=== PATIENT | female | born 1975 | race Caucasian/White ===

== ENCOUNTER 2021-10-26 14:33 | Inpatient (IN) | payer OTHER ==
[2021-10-26] MEDS ORDERED: levETIRAcetam 1000 MG/NS 0.75% 1,000 MG/100 ML BAG IV ONE (14:36)
[2021-10-26] MEDS ORDERED: LORazepam 2 MG/ML VIAL IV ONE (14:40)
--- NOTE | 2021-10-26 14:44 | Emergency Department Report ---
HPI - General Time Seen by Provider: 10/26/21 14:36 - HPI HPI: Room 21 The patient is a 46-year-old female presenting with a chief complaint of seizures. 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 Patient has a history of seizures but was taken off of her seizure medications approximately 3 years ago. Daughter states the last seizure before today occurred a few months ago. Patient is currently postictal the family states that the patient was planning on seeing a physician secondary to body aches and sore throat for the past few days ED Past Medical Hx - Past Medical History Hx Seizures: Yes - Surgical History Additional Surgical History: Cervical spine - Family History Family history: no significant - Social History Smoking Status: Never Smoker Substance Use Type: None - Medications Home Medications: Home Medications Medication Instructions Recorded Confirmed Last Taken Type Benzonatate [Tessalon Perles] 100 mg PO Q8HR #30 cap 10/26/21 Unknown Rx Ibuprofen [Motrin 800 MG tab] 800 mg PO Q8HR PRN #20 tablet 10/26/21 Unknown Rx levETIRAcetam [Keppra TAB] 1,000 mg PO BID #90 tab 10/26/21 Unknown Rx ED Review of Systems ROS: Stated complaint: SEIZURE Other details as noted in HPI Comment: Unobtainable due to pts medical conditions Physical Exam - Physical Exam Physical Exam: GENERAL: The patient is well-developed well-nourished female lying on stretcher currently postictal. [] HEENT: Normocephalic. Atraumatic. Extraocular motions are intact. Patient has moist mucous membranes. NECK: Supple. Trachea midline CHEST/LUNGS: Clear to auscultation. There is no respiratory distress noted. HEART/CARDIOVASCULAR: Regular. There is no tachycardia. There is no gallop rub or murmur. ABDOMEN: Abdomen is soft, nontender. Patient has normal bowel sounds. There is no abdominal distention. SKIN: There is no rash. There is no edema. There is no diaphoresis. NEURO: The patient is awake with eyes open but postictal. The patient is not cooperative with neurologic exam at this time. MUSCULOSKELETAL: There is no evidence of acute injury. ED Course - Reevaluation(s) Reevaluation #1: 10/26/21 16:51 Patient A&O x4-states that she was taken off her Keppra 3 years ago. Patient denies having a sore throat but states she has had body aches and occasional dry cough. Patient states she tested negative for COVID ED Medical Decision Making - Lab Data Result diagrams: 10/26/21 15:58 10/26/21 15:58 Laboratory Tests 10/26/21 10/26/21 10/26/21 15:58 15:58 15:58 WBC 3.0 L RBC 4.41 Hgb 13.3 Hct 39.5 MCV 90 MCH 30 MCHC 34 RDW 16.3 H Plt Count 141 [place] % (Auto) Mesmerist PT 13.9 INR 0.97 Sodium 135 L Chloride 103.2 Carbon Dioxide 20 L Anion Gap 16 BUN 9 Creatinine 0.9 Estimated GFR > 60 BUN/Creatinine Ratio 10 Glucose 85 Calcium 8.8 Magnesium 1.70 Total Creatine Kinase 145 H CK-MB (CK-2) 1.1 CK-MB (CK-2) Rel Index 0.7 Troponin T < 0.010 - EKG Data -: EKG Interpreted by Me EKG shows normal: sinus rhythm Rate: normal - EKG Data When compared to previous EKG there are: previous EKG unavailable Interpretation: nonspecific ST-T wave javier (T wave inversion lead aVL, V2) - Radiology Data Radiology results: report reviewed (Chest x-ray), image reviewed (Chest x-ray) interpreted by me: Chest x-ray-no definite focal infiltrates, no pneumothorax [address] [address] XRay Report Signed Patient: LILIYA MONTENEGRO MR#: [id number] : 1975 Acct:[id number] Age/Sex: 46 / F ADM Date: 10/26/21 Loc: ED Attending Dr: Ordering Physician: KAYLEEN MERLOS MD Date of Service: 10/26/21 Procedure(s): XR chest 1V ap Accession Number(s): [id number] cc: KAYLEEN MERLOS MD Fluoro Time In Minutes: CHEST 1 VIEW 10/26/2021 2:47 PM INDICATION / CLINICAL INFORMATION: chest pain. COMPARISON: None available. FINDINGS: SUPPORT DEVICES: None. HEART / MEDIASTINUM: No significant abnormality. LUNGS / PLEURA: No significant pulmonary or pleural abnormality. No pneumothorax. ADDITIONAL FINDINGS: No significant additional findings. IMPRESSION: 1. No acute findings. Signer Name: Sloan Byers MD Signed: 10/26/2021 3:01 PM Workstation Name: [email or web address] Transcribed By: LEONEL Dictated By: KATTY BYERS MD Electronically Authenticated By: KATTY BYERS MD Signed Date/Time: 10/26/211500 DD/ 00 TD/TT: - Differential Diagnosis Seizure Critical care attestation.: If time is entered above; I have spent that time in minutes in the direct care of this critically ill patient, excluding procedure time. ED Disposition Clinical Impression: Seizure, Cough Disposition: HOME / SELF CARE / HOMELESS Is pt being admited?: No Does the pt Need Aspirin: No Condition: Stable Instructions: Seizure, Adult, [id number] Additional Instructions: Return to the emergency department should you develop worsening symptoms, inabil ity to tolerate food or liquids, high fever or any other concerns Prescriptions: levETIRAcetam [Keppra TAB] 1,000 mg PO BID #90 tab Ibuprofen [Motrin 800 MG tab] 800 mg PO Q8HR PRN #20 tablet PRN Reason: Pain , Severe (7-10) Benzonatate [Tessalon Perles] 100 mg PO Q8HR #30 cap Referrals: [facility] [Provider Group] - 3-5 Days ELIEL THRASHER MD [Staff Physician] - 3-5 Days (Dr. Thrasher is a neurologist. Please follow-up with him for further evaluation) Time of Disposition: 16:54
--- NOTE | 2021-10-26 15:06 | XRay Report ---
CHEST 1 VIEW 10/26/2021 2:47 PM INDICATION / CLINICAL INFORMATION: chest pain. COMPARISON: None available. FINDINGS: SUPPORT DEVICES: None. HEART / MEDIASTINUM: No significant abnormality. LUNGS / PLEURA: No significant pulmonary or pleural abnormality. No pneumothorax. ADDITIONAL FINDINGS: No significant additional findings. IMPRESSION: 1. No acute findings. Signer Name: Sloan Byers MD Signed: 10/26/2021 3:01 PM Workstation Name: [email or web address]
[2021-10-26 16:18] LABS: Hematocrit 39.5 % (30.3-42.9); Hemoglobin 13.3 gm/dl (10.1-14.3); Mean Corpuscular HGB Conc 34 % (30-34); Mean Corpuscular Volume 90 fl (79-97); Platelet Count 141 K/mm3 (140-440); Red Blood Count 4.41 M/mm3 (3.65-5.03); Red Cell Distribution Width 16.3 % (13.2-15.2)
[2021-10-26 16:27] LABS: INR 0.97 (0.87-1.13)
[2021-10-26 16:32] LABS: Creatine Kinase MB 1.1 ng/mL (0.0-4.0)
[2021-10-26 16:33] LABS: BUN/Creatinine Ratio 10; Blood Urea Nitrogen 9 mg/dL (7-17); Calcium 8.8 mg/dL (8.4-10.2); Hemolysis Index 66
[2021-10-26 17:06] LABS: Anisocytosis 1+; Basophils % (Manual) 0 % (0.0-1.8); Eosinophils % (Manual) 0 % (0.0-4.3); Platelet Estimate Consistent w Auto; Total Cells Counted 100
[2021-10-26] MEDS ORDERED: FOSPHENYTOIN 1,000 MG.PE in SODIUM CHLORIDE 0.9% 100 ML IV ONE (18:00)
--- NOTE | 2021-10-26 19:42 | Cat Scan Report ---
CT BRAIN: 10/26/2021 INDICATION / CLINICAL INFORMATION: Seizure. COMPARISON: None available. FINDINGS: BRAIN/INTRACRANIAL STRUCTURES: Unenhanced CT images of the brain demonstrate no evidence of acute abn ormality. Ventricles and sulci are normal in size and shape. There is no evidence of acute ischemic injury, hemorrhage, or mass. There are no abnormal extra-axial fluid collections. EXTRACRANIAL STRUCTURES: Unremarkable. IMPRESSION: No acute abnormality All CT scans at this location are performed using dose reduction to ALARA by means of automated expos ure control. Signer Name: Silas Hansen MD Signed: 10/26/2021 7:38 PM Workstation Name: [id number]
--- NOTE | 2021-10-26 20:03 | History and Physical Report ---
History of Present Illness Chief complaint: She is having seizures History of present illness: 46 YO Female with Seizure disorder not currently taking antiepileptic therapy presents to ED for evaluation. Patient is alert and has normal evaluations and provide history. Patient history taken from ED staff as well as the patient's family who present since of the bedside during exam and interview. 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 Patient seen and evaluated in the emergency department. All lab and imaging studies reviewed. Patient was observed having multiple seizures with entire 5-minute timeframe which is consistent with status epilepticus complicated by encephalopathy. Patient admitted to medical floor due to increased risk of worsening symptoms and for medical stabilization. Patient loaded with Keppra in the emergency department. No reports of fever, chills, chest pain, palpitation, productive cough, skin rash, trauma, or known exposure to COVID-19. No prior admission for review. No medication listed at time of admission for reconciliation. Advanced care planning conducted in ED. Past History Past Medical History: seizures, other (See HPI) Past Surgical History: Other (Spine surgery) Social history: no significant social history, other (Unable to obtain) Family history: hypertension Medications and Allergies Allergies Allergy/AdvReac Type Severity Reaction Status Date / Time morphine Allergy Unknown Verified 10/26/21 14:48 Home Medications Medication Instructions Recorded Confirmed Last Taken Type Benzonatate [Tessalon Perles] 100 mg PO Q8HR #30 cap 10/26/21 Unknown Rx Ibuprofen [Motrin 800 MG tab] 800 mg PO Q8HR PRN #20 tablet 10/26/21 Unknown Rx levETIRAcetam [Keppra TAB] 1,000 mg PO BID #90 tab 10/26/21 Unknown Rx Review of Systems ROS unobtainable: due to mental status Exam - Constitutional Vitals: Temp Pulse Resp BP Pulse Ox 99.5 F 99 H 13 136/85 100 10/26/21 14:43 10/26/21 14:43 10/26/21 14:43 10/26/21 14:43 10/26/21 14:43 General appearance: Present: mild distress - EENT Eyes: Present: PERRL, miosis ENT: hearing intact, clear oral mucosa - Neck Neck: Present: supple, normal ROM - Respiratory Respiratory effort: normal Respiratory: bilateral: CTA - Cardiovascular Heart Sounds: Present: S1 & S2. Absent: rub, click - Extremities Extremities: pulses symmetrical, No edema Peripheral Pulses: within normal limits - Abdominal General gastrointestinal: Present: soft, non-tender, non-distended, normal bowel sounds Female genitourinary: Present: normal - Integumentary Integumentary: Present: clear, warm, dry - Musculoskeletal Musculoskeletal: gait normal, strength equal bilaterally - Psychiatric Psychiatric: other (Lethargic) - Neurologic Neurologic: CNII-XII intact, moves all extremities HEART Score - HEART Score Troponin: Troponin T < 0.010 ng/mL (0.00-0.029) 10/26/21 15:58 Results - Labs CBC & Chem 7: 10/26/21 15:58 10/26/21 15:58 Labs: Abnormal lab results 10/26/21 10/26/21 Range/Units 15:58 15:58 WBC 3.0 L (4.5-11.0) K/mm3 RDW 16.3 H (13.2-15.2) % Monocytes % (Manual) 14.0 H (0.0-7.3) % Lymphocytes # (Manual) 0.8 L (1.2-5.4) K/mm3 Sodium 135 L (137-145) mmol/L Carbon Dioxide 20 L (22-30) mmol/L Total Creatine Kinase 145 H (30-135) units/L Assessment and Plan - Patient Problems (1) Status epilepticus Current Visit: Yes Status: Acute Plan to address problem: Keppra loading in the emergency department, Keppra 500 mg p.o. twice daily, neuro check, seizure cards, aspiration precautions, continue medical management. (2) Acute encephalopathy Current Visit: Yes Status: Acute Plan to address problem: CT scan head, neuro check, seizure precautions, treat seizure disorder. (3) DVT prophylaxis Current Visit: Yes Status: Acute Plan to address problem: SCDs bilateral lower extremities while in bed (4) Advance care planning Current Visit: Yes Status: Acute Plan to address problem: Disease education data, care plan discussed, diagnoses discussed, prognosis discussed, patient family knowledge understanding and agreement with care plan, +30 minutes. (5) Preventative health care Current Visit: Yes Status: Acute Plan to address problem: Patient family counseled regarding medication compliance, outpatient follow-up with neurology as well as primary care physician for all age and risk factor appropriate screening test. +30 minutes.
[2021-10-26] MEDS ORDERED: oxyCODONE /ACETAMINOPHEN 5-325MG TAB PO PRN (20:05)
[2021-10-26] MEDS ORDERED: HYDROmorphone 0.5 MG/0.5 ML INJ IV PRN (20:05)
[2021-10-26] MEDS ORDERED: ALBUTEROL 2.5 MG/3 ML NEBU IH PRN (20:05)
[2021-10-26] MEDS: SODIUM CHLORIDE 0.9% 1000 ML 1,000 ML IV SCH (22:35)
[2021-10-26] MEDS: LORazepam 2 MG/ML VIAL IV PRN (22:40)
[2021-10-26] MEDS: levETIRAcetam 500 MG/5 ML ORAL LIQD PO SCH (22:40)
[2021-10-26] MEDS: ACETAMINOPHEN 325 MG TAB PO PRN (22:40)
[2021-10-27] MEDS: SODIUM CHLORIDE 0.9% 1000 ML 1,000 ML IV SCH ×3 (05:32→22:47)
[2021-10-27] MEDS: levETIRAcetam 500 MG/5 ML ORAL LIQD PO SCH (09:06)
[2021-10-27] MEDS: LORazepam 2 MG/ML VIAL IV PRN (10:43)
[2021-10-27] MEDS: levETIRAcetam 500 MG in DEXTROSE 5% IN WATER 100 ML IV SCH ×2 (11:43→23:03)
--- NOTE | 2021-10-27 11:56 | Progress Note ---
Assessment and Plan Assessment and plan: #Status epilepticus #Seizure disorder, uncontrolled #medication non-compliance -Keppra and phenytoin loaded in the emergency department -will continue Keppra 500mg IV BID, phenytoin added -PRN ativan for breakthrough seizures -Neurology consulted, awaiting recommendations -UDS ordered -patient stopped taking Keppra and phenytoin on her own and has had breakthrough seizures which has recently worsened, counseled about importance of taking medications and follow up with Neurology. #Acute metabolic encephalopathy-improved -CT head negative -likely secondary to seizures #Advanced care planning -Disease education data, care plan discussed, diagnoses discussed, prognosis discussed, patient family knowledge understanding and agreement with care plan, +30 minutes. History Interval history: Patient seen at bedside along with daughter. At beginning of interview patient became silent after using the rest room. The nurse and I placed her on the bed and positioned her supinely. She then began to have convulsions that lasted approximately less than 30 seconds with saliva coming out of her mouth. 2mg of ativan x 1 was ordered. She became lucid prior to administration and was not in a post-ictal state. Hospitalist Physical - Physical exam Narrative exam: GENERAL: Thin woman. Lying in the bed in no acute distress. HEENT: Normocephalic. Atraumatic. NECK: Supple. CHEST/LUNGS: CTAB on room air HEART/CARDIOVASCULAR: RRR. No murmur, rubs or gallops appreciated. ABDOMEN: +BS. NT/ND. SKIN: No rashes noted. NEURO: No focal motor deficit. Follows all commands. MUSCULOSKELETAL: No joint effusion EXTREMITIES: No cyanosis, clubbing or edema. PSYCH: Cooperative. - Constitutional Vitals: Temp Pulse Resp BP Pulse Ox 99.4 F 69 17 179/99 99 10/26/21 22:00 10/27/21 04:41 10/27/21 09:16 10/27/21 04:41 10/27/21 10:59 General appearance: Present: mild distress HEART Score - HEART Score Troponin: Troponin T < 0.010 ng/mL (0.00-0.029) 10/26/21 15:58 Results - Labs CBC & Chem 7: 10/26/21 15:58 10/27/21 13:31 Labs: Laboratory Last Values WBC 3.0 K/mm3 (4.5-11.0) L 10/26/21 15:58 RBC 4.41 M/mm3 (3.65-5.03) 10/26/21 15:58 Hgb 13.3 gm/dl (10.1-14.3) 10/26/21 15:58 Hct 39.5 % (30.3-42.9) 10/26/21 15:58 MCV 90 fl (79-97) 10/26/21 15:58 MCH 30 pg (28-32) 10/26/21 15:58 MCHC 34 % (30-34) 10/26/21 15:58 RDW 16.3 % (13.2-15.2) H 10/26/21 15:58 Plt Count 141 K/mm3 (140-440) 10/26/21 15:58 [place] % (Auto) [facility] Practitioner 10/26/21 15:58 Add Manual Diff Complete 10/26/21 15:58 Total Counted 100 10/26/21 15:58 Seg Neuts % (Manual) 59.0 % (40.0-70.0) 10/26/21 15:58 Band Neutrophils % 0 % 10/26/21 15:58 Lymphocytes % (Manual) 27.0 % (13.4-35.0) 10/26/21 15:58 Reactive Lymphs % (Man) 0 % 10/26/21 15:58 Monocytes % (Manual) 14.0 % (0.0-7.3) H 10/26/21 15:58 Eosinophils % (Manual) 0 % (0.0-4.3) 10/26/21 15:58 Basophils % (Manual) 0 % (0.0-1.8) 10/26/21 15:58 Metamyelocytes % 0 % 10/26/21 15:58 Myelocytes % 0 % 10/26/21 15:58 Promyelocytes % 0 % 10/26/21 15:58 Blast Cells % 0 % 10/26/21 15:58 Nucleated RBC % Not Reportable 10/26/21 15:58 Seg Neutrophils # Man 1.8 K/mm3 (1.8-7.7) 10/26/21 15:58 Band Neutrophils # 0.0 K/mm3 10/26/21 15:58 Lymphocytes # (Manual) 0.8 K/mm3 (1.2-5.4) L 10/26/21 15:58 Abs React Lymphs (Man) 0.0 K/mm3 10/26/21 15:58 Monocytes # (Manual) 0.4 K/mm3 (0.0-0.8) 10/26/21 15:58 Eosinophils # (Manual) 0.0 K/mm3 (0.0-0.4) 10/26/21 15:58 Basophils # (Manual) 0.0 K/mm3 (0.0-0.1) 10/26/21 15:58 Metamyelocytes # 0.0 K/mm3 10/26/21 15:58 Myelocytes # 0.0 K/mm3 10/26/21 15:58 Promyelocytes # 0.0 K/mm3 10/26/21 15:58 Blast Cells # 0.0 K/mm3 10/26/21 15:58 WBC Morphology Not Reportable 10/26/21 15:58 Hypersegmented Neuts Not Reportable 10/26/21 15:58 Hyposegmented Neuts Not Reportable 10/26/21 15:58 Hypogranular Neuts Not Reportable 10/26/21 15:58 Smudge Cells Not Reportable 10/26/21 15:58 Toxic Granulation Not Reportable 10/26/21 15:58 Toxic Vacuolation Not Reportable 10/26/21 15:58 Dohle Bodies Not Reportable 10/26/21 15:58 Pelger-Huet Anomaly Not Reportable 10/26/21 15:58 Joseph Rods Not Reportable 10/26/21 15:58 Platelet Estimate Consistent w auto 10/26/21 15:58 Clumped Platelets Not Reportable 10/26/21 15:58 Plt Clumps, EDTA Not Reportable 10/26/21 15:58 Large Platelets Not Reportable 10/26/21 15:58 Giant Platelets Not Reportable 10/26/21 15:58 Platelet Satelliting Not Reportable 10/26/21 15:58 Plt Morphology Comment Not Reportable 10/26/21 15:58 RBC Morphology Not Reportable 10/26/21 15:58 Dimorphic RBCs Not Reportable 10/26/21 15:58 Polychromasia Not Reportable 10/26/21 15:58 Hypochromasia Not Reportable 10/26/21 15:58 Poikilocytosis Not Reportable 10/26/21 15:58 Anisocytosis 1+ 10/26/21 15:58 Microcytosis Not Reportable 10/26/21 15:58 Macrocytosis Not Reportable 10/26/21 15:58 Spherocytes Not Reportable 10/26/21 15:58 Pappenheimer Bodies Not Reportable 10/26/21 15:58 Sickle Cells Not Reportable 10/26/21 15:58 Target Cells Not Reportable 10/26/21 15:58 Tear Drop Cells Not Reportable 10/26/21 15:58 Ovalocytes Not Reportable 10/26/21 15:58 Helmet Cells Not Reportable 10/26/21 15:58 Jansen-Clara Bodies Not Reportable 10/26/21 15:58 Billings Rings Not Reportable 10/26/21 15:58 Alma Rosa Cells Not Reportable 10/26/21 15:58 Bite Cells Not Reportable 10/26/21 15:58 Crenated Cell Not Reportable 10/26/21 15:58 Elliptocytes Not Reportable 10/26/21 15:58 Acanthocytes (Spur) Not Reportable 10/26/21 15:58 Rouleaux Not Reportable 10/26/21 15:58 Hemoglobin C Crystals Not Reportable 10/26/21 15:58 Schistocytes Not Reportable 10/26/21 15:58 Malaria parasites Not Reportable 10/26/21 15:58 Conrado Bodies Not Reportable 10/26/21 15:58 Hem Pathologist Commnt No 10/26/21 15:58 PT 13.9 Sec. (12.2-14.9) 10/26/21 15:58 INR 0.97 (0.87-1.13) 10/26/21 15:58 Sodium 135 mmol/L (137-145) L 10/26/21 15:58 Potassium 4.2 mmol/L (3.6-5.0) 10/26/21 15:58 Chloride 103.2 mmol/L (98-107) 10/26/21 15:58 Carbon Dioxide 20 mmol/L (22-30) L 10/26/21 15:58 Anion Gap 16 mmol/L 10/26/21 15:58 BUN 9 mg/dL (7-17) 10/26/21 15:58 Creatinine 0.9 mg/dL (0.6-1.2) 10/26/21 15:58 Estimated GFR > 60 ml/min 10/26/21 15:58 BUN/Creatinine Ratio 10 % 10/26/21 15:58 Glucose 85 mg/dL (65-100) 10/26/21 15:58 Calcium 8.8 mg/dL (8.4-10.2) 10/26/21 15:58 Magnesium 1.70 mg/dL (1.7-2.3) 10/26/21 15:58 Total Creatine Kinase 145 units/L (30-135) H 10/26/21 15:58 CK-MB (CK-2) 1.1 ng/mL (0.0-4.0) 10/26/21 15:58 CK-MB (CK-2) Rel Index 0.7 (0-4) 10/26/21 15:58 Troponin T < 0.010 ng/mL (0.00-0.029) 10/26/21 15:58 Casey/IV: Voiding Method External Female Catheter Active Medications - Current Medications Current Medications: Generic Name Dose Route Start Last Admin Trade Name Freq PRN Reason Stop Dose Admin Acetaminophen 650 mg 10/26/21 20:05 10/26/21 22:40 Acetaminophen 325 Mg Tab PO 650 mg Q4H PRN Administration Pain MILD(1-3)/Fever >100.5/LEVINE Albuterol 2.5 mg 10/26/21 20:05 Albuterol 2.5 Mg/3 Ml Nebu IH Q4HRT PRN Shortness Of Breath Hydromorphone HCl 0.5 mg 10/26/21 20:05 Hydromorphone 0.5 Mg/0.5 Ml Inj IV Q23H PRN Pain , Severe (7-10) Sodium Chloride 1,000 mls @ 125 mls/hr 10/26/21 20:15 10/27/21 05:32 Nacl 0.9% 1000 Ml IV 125 mls/hr DIRECT SCARLETT Administration Levetiracetam 500 mg/ Dextrose 105 mls @ 400 mls/hr 10/27/21 11:00 10/27/21 11:43 IV 400 mls/hr Q12HR SCARLETT Administration Lorazepam 2 mg 10/26/21 20:26 10/27/21 10:43 Lorazepam 2 Mg/Ml Vial IV 2 mg Q8H PRN Administration Seizures Ondansetron HCl 4 mg 10/26/21 20:05 Ondansetron 4 Mg/2 Ml Inj IV Q8H PRN Nausea And Vomiting Oxycodone/Acetaminophen 1 tab 10/26/21 20:05 Oxycodone /Acetaminophen 5-325mg Tab PO Q16H PRN Pain, Moderate (4-6) Phenytoin 200 mg 10/27/21 14:00 Phenytoin 100 Mg/2 Ml Vial IV Q8HR SCARLETT Sodium Chloride 10 ml 10/26/21 22:00 10/27/21 09:06 Sodium Chloride 0.9% 10 Ml Flush Syringe IV 10 ml BID SCARLETT Administration Sodium Chloride 10 ml 10/26/21 20:05 Sodium Chloride 0.9% 10 Ml Flush Syringe IV PRN PRN LINE FLUSH
--- NOTE | 2021-10-27 13:22 | Electrocardiograph Report ---
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
[2021-10-27] MEDS ORDERED: PHENYTOIN 100 MG/2 ML VIAL IV SCH (14:00)
[2021-10-27] MEDS: SODIUM CHLORIDE 0.9% IV SCH ×2 (14:00→22:49)
[2021-10-27] MEDS: PHENYTOIN IV SCH ×2 (14:00→22:49)
[2021-10-27 14:03] LABS: BUN/Creatinine Ratio 9; Blood Urea Nitrogen 7 mg/dL (7-17); Hemolysis Index 4
[2021-10-27] MEDS ORDERED: LORazepam 2 MG/ML VIAL IM PRN (16:30)
[2021-10-27] MEDS: LORazepam 2 MG/ML VIAL IM PRN ×3 (17:51→23:52)
[2021-10-27 23:53] LABS: Amphetamine Screen,Urine PRESUMPTIVE NEGATIVE; Benzodiazepines Screen,Urine PRESUMPTIVE NEGATIVE; Cannabinoid Screen,Urine PRESUMPTIVE POSITIVE; Cocaine Screen,Urine PRESUMPTIVE NEGATIVE; Methadone Screen,Urine PRESUMPTIVE NEGATIVE; Opiate Screen,Urine PRESUMPTIVE NEGATIVE
[2021-10-28] MEDS: SODIUM CHLORIDE 0.9% IV SCH ×3 (06:35→22:17)
[2021-10-28] MEDS: PHENYTOIN IV SCH ×3 (06:35→22:17)
[2021-10-28 08:35] LABS: Alanine Aminotransferase 7 units/L (7-56); Albumin 3.4 g/dL (3.9-5); Blood Urea Nitrogen 6 mg/dL (7-17); Hemolysis Index 0
[2021-10-28 08:40] LABS: BUN/Creatinine Ratio 9
[2021-10-28] MEDS ORDERED: LORazepam 2 MG/ML VIAL IV PRN (09:54)
[2021-10-28] MEDS: LORazepam 2 MG/ML VIAL IM PRN (09:56)
[2021-10-28] MEDS: SODIUM CHLORIDE 0.9% 1000 ML 1,000 ML IV SCH (10:03)
[2021-10-28] MEDS: levETIRAcetam 750 MG in DEXTROSE 5% IN WATER 100 ML IV SCH ×2 (10:08→23:00)
--- NOTE | 2021-10-28 11:36 | Progress Note ---
Assessment and Plan Assessment and plan: #Status epilepticus #Seizure disorder, uncontrolled #medication non-compliance -Keppra and phenytoin loaded in the emergency department -will continue phenytoin, keppra increased to 750mg BID; will order Keppra level -PRN ativan for breakthrough seizures -Neurology consulted, awaiting recommendations; EEG ordered -UDS positive for marijuana; patient confirmed use -patient stopped taking Keppra and phenytoin on her own and has had breakthrough seizures which has recently worsened, counseled about importance of taking medications and follow up with Neurology. #Acute metabolic encephalopathy-improved -CT head negative -likely secondary to seizures #Mild protein calorie malnutrition -albumin 3.4 -nutrition consult #Marijuana use -UDS positive -patient counseled about cessation due to seizure disorder- +10 minutes #Advanced care planning -Disease education data, care plan discussed, diagnoses discussed, prognosis discussed, patient family knowledge understanding and agreement with care plan, +30 minutes. History Interval history: Patient seen this morning. Per chart review she had 1 seizure last night which was terminated with Ativan x1. Patient was alert and oriented x3. Patient has no discomfort at this time. Currently awaiting Teleneurology evaluation. Hospitalist Physical - Physical exam Narrative exam: GENERAL: Thin woman. Lying in the bed in no acute distress. HEENT: Normocephalic. Atraumatic. NECK: Supple. CHEST/LUNGS: CTAB on room air HEART/CARDIOVASCULAR: RRR. No murmur, rubs or gallops appreciated. ABDOMEN: +BS. NT/ND. SKIN: No rashes noted. NEURO: No focal motor deficit. Follows all commands. MUSCULOSKELETAL: No joint effusion EXTREMITIES: No cyanosis, clubbing or edema. PSYCH: Cooperative. - Constitutional Vitals: Temp Pulse Resp BP Pulse Ox 98.2 F 73 19 89/54 98 10/28/21 05:53 10/28/21 05:53 10/28/21 05:53 10/28/21 05:53 10/28/21 05:53 HEART Score - HEART Score Troponin: Troponin T < 0.010 ng/mL (0.00-0.029) 10/26/21 15:58 Results - Labs CBC & Chem 7: 10/26/21 15:58 10/28/21 07:47 Labs: Laboratory Last Values WBC 3.0 K/mm3 (4.5-11.0) L 10/26/21 15:58 RBC 4.41 M/mm3 (3.65-5.03) 10/26/21 15:58 Hgb 13.3 gm/dl (10.1-14.3) 10/26/21 15:58 Hct 39.5 % (30.3-42.9) 10/26/21 15:58 MCV 90 fl (79-97) 10/26/21 15:58 MCH 30 pg (28-32) 10/26/21 15:58 MCHC 34 % (30-34) 10/26/21 15:58 RDW 16.3 % (13.2-15.2) H 10/26/21 15:58 Plt Count 141 K/mm3 (140-440) 10/26/21 15:58 [place] % (Auto) Gristmill Operator 10/26/21 15:58 Add Manual Diff Complete 10/26/21 15:58 Total Counted 100 10/26/21 15:58 Seg Neuts % (Manual) 59.0 % (40.0-70.0) 10/26/21 15:58 Band Neutrophils % 0 % 10/26/21 15:58 Lymphocytes % (Manual) 27.0 % (13.4-35.0) 10/26/21 15:58 Reactive Lymphs % (Man) 0 % 10/26/21 15:58 Monocytes % (Manual) 14.0 % (0.0-7.3) H 10/26/21 15:58 Eosinophils % (Manual) 0 % (0.0-4.3) 10/26/21 15:58 Basophils % (Manual) 0 % (0.0-1.8) 10/26/21 15:58 Metamyelocytes % 0 % 10/26/21 15:58 Myelocytes % 0 % 10/26/21 15:58 Promyelocytes % 0 % 10/26/21 15:58 Blast Cells % 0 % 10/26/21 15:58 Nucleated RBC % Not Reportable 10/26/21 15:58 Seg Neutrophils # Man 1.8 K/mm3 (1.8-7.7) 10/26/21 15:58 Band Neutrophils # 0.0 K/mm3 10/26/21 15:58 Lymphocytes # (Manual) 0.8 K/mm3 (1.2-5.4) L 10/26/21 15:58 Abs React Lymphs (Man) 0.0 K/mm3 10/26/21 15:58 Monocytes # (Manual) 0.4 K/mm3 (0.0-0.8) 10/26/21 15:58 Eosinophils # (Manual) 0.0 K/mm3 (0.0-0.4) 10/26/21 15:58 Basophils # (Manual) 0.0 K/mm3 (0.0-0.1) 10/26/21 15:58 Metamyelocytes # 0.0 K/mm3 10/26/21 15:58 Myelocytes # 0.0 K/mm3 10/26/21 15:58 Promyelocytes # 0.0 K/mm3 10/26/21 15:58 Blast Cells # 0.0 K/mm3 10/26/21 15:58 WBC Morphology Not Reportable 10/26/21 15:58 Hypersegmented Neuts Not Reportable 10/26/21 15:58 Hyposegmented Neuts Not Reportable 10/26/21 15:58 Hypogranular Neuts Not Reportable 10/26/21 15:58 Smudge Cells Not Reportable 10/26/21 15:58 Toxic Granulation Not Reportable 10/26/21 15:58 Toxic Vacuolation Not Reportable 10/26/21 15:58 Dohle Bodies Not Reportable 10/26/21 15:58 Pelger-Huet Anomaly Not Reportable 10/26/21 15:58 Joseph Rods Not Reportable 10/26/21 15:58 Platelet Estimate Consistent w auto 10/26/21 15:58 Clumped Platelets Not Reportable 10/26/21 15:58 Plt Clumps, EDTA Not Reportable 10/26/21 15:58 Large Platelets Not Reportable 10/26/21 15:58 Giant Platelets Not Reportable 10/26/21 15:58 Platelet Satelliting Not Reportable 10/26/21 15:58 Plt Morphology Comment Not Reportable 10/26/21 15:58 RBC Morphology Not Reportable 10/26/21 15:58 Dimorphic RBCs Not Reportable 10/26/21 15:58 Polychromasia Not Reportable 10/26/21 15:58 Hypochromasia Not Reportable 10/26/21 15:58 Poikilocytosis Not Reportable 10/26/21 15:58 Anisocytosis 1+ 10/26/21 15:58 Microcytosis Not Reportable 10/26/21 15:58 Macrocytosis Not Reportable 10/26/21 15:58 Spherocytes Not Reportable 10/26/21 15:58 Pappenheimer Bodies Not Reportable 10/26/21 15:58 Sickle Cells Not Reportable 10/26/21 15:58 Target Cells Not Reportable 10/26/21 15:58 Tear Drop Cells Not Reportable 10/26/21 15:58 Ovalocytes Not Reportable 10/26/21 15:58 Helmet Cells Not Reportable 10/26/21 15:58 Jansen-[place] Bodies Not Reportable 10/26/21 15:58 [place] Rings Not Reportable 10/26/21 15:58 [place] Cells Not Reportable 10/26/21 15:58 Bite Cells Not Reportable 10/26/21 15:58 Crenated Cell Not Reportable 10/26/21 15:58 Elliptocytes Not Reportable 10/26/21 15:58 Acanthocytes (Spur) Not Reportable 10/26/21 15:58 Rouleaux Not Reportable 10/26/21 15:58 Hemoglobin C Crystals Not Reportable 10/26/21 15:58 Schistocytes Not Reportable 10/26/21 15:58 Malaria parasites Not Reportable 10/26/21 15:58 Conrado Bodies Not Reportable 10/26/21 15:58 Hem Pathologist Commnt No 10/26/21 15:58 PT 13.9 Sec. (12.2-14.9) 10/26/21 15:58 INR 0.97 (0.87-1.13) 10/26/21 15:58 Sodium 141 mmol/L (137-145) 10/28/21 07:47 Potassium 3.8 mmol/L (3.6-5.0) 10/28/21 07:47 Chloride 108.8 mmol/L (98-107) H 10/28/21 07:47 Carbon Dioxide 22 mmol/L (22-30) 10/28/21 07:47 Anion Gap 14 mmol/L 10/28/21 07:47 BUN 6 mg/dL (7-17) L 10/28/21 07:47 Creatinine 0.7 mg/dL (0.6-1.2) 10/28/21 07:47 Estimated GFR > 60 ml/min 10/28/21 07:47 BUN/Creatinine Ratio 9 % 10/28/21 07:47 Glucose 75 mg/dL (65-100) 10/28/21 07:47 Calcium 8.0 mg/dL (8.4-10.2) L 10/28/21 07:47 Magnesium 1.70 mg/dL (1.7-2.3) 10/26/21 15:58 Total Bilirubin 0.20 mg/dL (0.1-1.2) 10/28/21 07:47 AST 21 units/L (5-40) 10/28/21 07:47 ALT 7 units/L (7-56) 10/28/21 07:47 Alkaline Phosphatase 57 units/L (35-129) 10/28/21 07:47 Total Creatine Kinase 145 units/L (30-135) H 10/26/21 15:58 CK-MB (CK-2) 1.1 ng/mL (0.0-4.0) 10/26/21 15:58 CK-MB (CK-2) Rel Index 0.7 (0-4) 10/26/21 15:58 Troponin T < 0.010 ng/mL (0.00-0.029) 10/26/21 15:58 Total Protein 5.4 g/dL (6.3-8.2) L 10/28/21 07:47 Albumin 3.4 g/dL (3.9-5) L 10/28/21 07:47 Albumin/Globulin Ratio 1.7 % 10/28/21 07:47 Urine Opiates Screen Presumptive negative 10/27/21 23:10 Urine Methadone Screen Presumptive negative 10/27/21 23:10 Ur Barbiturates Screen Presumptive negative 10/27/21 23:10 Ur Phencyclidine Scrn Presumptive negative 10/27/21 23:10 Ur Amphetamines Screen Presumptive negative 10/27/21 23:10 U Benzodiazepines Scrn Presumptive negative 10/27/21 23:10 Urine Cocaine Screen Presumptive negative 10/27/21 23:10 U Marijuana (THC) Screen Presumptive positive 10/27/21 23:10 Drugs of Abuse Note Disclamer 10/27/21 23:10 Casey/IV: Voiding Method Bedpan Active Medications - Current Medications Current Medications: Generic Name Dose Route Start Last Admin Trade Name Freq PRN Reason Stop Dose Admin Acetaminophen 650 mg 10/26/21 20:05 10/26/21 22:40 Acetaminophen 325 Mg Tab PO 650 mg Q4H PRN Administration Pain MILD(1-3)/Fever >100.5/LEVINE Albuterol 2.5 mg 10/26/21 20:05 Albuterol 2.5 Mg/3 Ml Nebu IH Q4HRT PRN Shortness Of Breath Hydromorphone HCl 0.5 mg 10/26/21 20:05 Hydromorphone 0.5 Mg/0.5 Ml Inj IV Q23H PRN Pain , Severe (7-10) Sodium Chloride 1,000 mls @ 125 mls/hr 10/26/21 20:15 10/28/21 10:03 Nacl 0.9% 1000 Ml IV 125 mls/hr DIRECT SCARLETT Administration Phenytoin 200 mg/ Sodium 200 mls @ 612 mls/hr 10/27/21 14:00 10/28/21 06:35 Chloride IV 612 mls/hr Q8H SCARLETT Administration Levetiracetam 750 mg/ Dextrose 107.5 mls @ 400 mls/hr 10/28/21 10:00 10/28/21 10:08 IV 400 mls/hr Q12HR SCARLETT Administration Lorazepam 2 mg 10/28/21 09:54 Lorazepam 2 Mg/Ml Vial IV Q6H PRN Seizures Ondansetron HCl 4 mg 10/26/21 20:05 Ondansetron 4 Mg/2 Ml Inj IV Q8H PRN Nausea And Vomiting Oxycodone/Acetaminophen 1 tab 10/28/21 09:00 Oxycodone /Acetaminophen 5-325mg Tab PO Q8H PRN Pain, Moderate (4-6) Sodium Chloride 10 ml 10/26/21 22:00 10/28/21 09:58 Sodium Chloride 0.9% 10 Ml Flush Syringe IV 10 ml BID SCARLETT Administration Sodium Chloride 10 ml 10/26/21 20:05 10/27/21 23:53 Sodium Chloride 0.9% 10 Ml Flush Syringe IV 10 ml PRN PRN Administration LINE FLUSH
--- NOTE | 2021-10-28 18:07 | Consultation ---
History of Present Illness - Reason for Consult Consult date: 10/28/21 - History of Present Illness [facility] Consult Note # Demographics Consult Type: General Neurology Patient Location: Inpatient First Name: nguyễn Last Name: ned Date of : 1975 Age: 46 Gender: Female Facility: [facility] Time of Initial Page ( Time): 10/28/2021, 17:52 Time of Return Call ( Time): 10/28/2021, 17:53 # HPI History: 46yo woman who was admitted for seizure. She had seizure last night, as well as 2 seizures today. She did fall and reportedly hit her head. Associated Symptoms: no confusion no dizziness falls no vision changes no vomiting Quality: no slurred speech weakness # Scores Time of exam and NIHSS ( Time): 10/28/2021, 18:05 Level of Consciousness 1a: [0] = Alert; keenly responsive LOC Questions 1b: [0] = Answers both questions correctly LOC Commands 1c: [0] = Performs both tasks correctly Best Gaze 2: [0] = Normal Visual 3: [0] = No visual loss Facial Palsy 4: [0] = Normal symmetrical movements Motor Arm Left 5a: [0] = No drift Motor Arm Right 5b: [0] = No drift Motor Leg Left 6a: [0] = No drift Motor Leg Right 6b: [0] = No drift Limb Ataxia 7: [0] = Absent Sensory 8: [0] = Normal Best Language 9: [0] = No aphasia Dysarthria 10: [0] = Normal Extinction and Inattention 11: [0] = No abnormality NIHSS Total: 0 # PMH-FH-SH Past Medical History: seizure COVId positive Medications: keppra 750mg bid dilantin 200mg bid # Assessment Impression: Seizure # Plan Imaging: (urgency: routine): MRI Brain with AND without contrast Diagnostic Test: EEG Medication: levetiracetam (Keppra) 1000 mg twice daily contine dilantin at 200mg bid Other: If patient has any neurological deterioration please call me back immediately telemetry monitoring # Demographics First Name: nguyễn Last Name: ned Facility: [facility] Past History Past Medical History: seizures, other (See HPI) Past Surgical History: Other (Spine surgery) Social history: no significant social history, other (Unable to obtain) Family history: hypertension Medications and Allergies Allergies Allergy/AdvReac Type Severity Reaction Status Date / Time morphine Allergy Unknown Verified 10/26/21 14:48 Home Medications Medication Instructions Recorded Confirmed Last Taken Type Benzonatate [Tessalon Perles] 100 mg PO Q8HR #30 cap 10/26/21 Unknown Rx Ibuprofen [Motrin 800 MG tab] 800 mg PO Q8HR PRN #20 tablet 10/26/21 Unknown Rx levETIRAcetam [Keppra TAB] 1,000 mg PO BID #90 tab 10/26/21 Unknown Rx Active Meds: Active Medications Acetaminophen (Acetaminophen 325 Mg Tab) 650 mg PO Q4H PRN PRN Reason: Pain MILD(1-3)/Fever >100.5/LEVINE Last Admin: 10/26/21 22:40 Dose: 650 mg Albuterol (Albuterol 2.5 Mg/3 Ml Nebu) 2.5 mg IH Q4HRT PRN PRN Reason: Shortness Of Breath Hydromorphone HCl (Hydromorphone 0.5 Mg/0.5 Ml Inj) 0.5 mg IV Q23H PRN PRN Reason: Pain , Severe (7-10) Sodium Chloride (Nacl 0.9% 1000 Ml) 1,000 mls @ 125 mls/hr IV DIRECT [facility] Last Admin: 10/28/21 10:03 Dose: 125 mls/hr Phenytoin 200 mg/ Sodium (Chloride) 200 mls @ 612 mls/hr IV Q8H [facility] Last Admin: 10/28/21 14:55 Dose: 612 mls/hr Levetiracetam 750 mg/ Dextrose 107.5 mls @ 400 mls/hr IV Q12HR [facility] Last Admin: 10/28/21 10:08 Dose: 400 mls/hr Lorazepam (Lorazepam 2 Mg/Ml Vial) 2 mg IV Q6H PRN PRN Reason: Seizures Ondansetron HCl (Ondansetron 4 Mg/2 Ml Inj) 4 mg IV Q8H PRN PRN Reason: Nausea And Vomiting Oxycodone/Acetaminophen (Oxycodone /Acetaminophen 5-325mg Tab) 1 tab PO Q8H PRN PRN Reason: Pain, Moderate (4-6) Sodium Chloride (Sodium Chloride 0.9% 10 Ml Flush Syringe) 10 ml IV BID SCARLETT Last Admin: 10/28/21 09:58 Dose: 10 ml Sodium Chloride (Sodium Chloride 0.9% 10 Ml Flush Syringe) 10 ml IV PRN PRN PRN Reason: LINE FLUSH Last Admin: 10/27/21 23:53 Dose: 10 ml Exam - Constitutional Vitals: Temp Pulse Resp BP Pulse Ox 98.2 F 73 19 89/54 99 10/28/21 05:53 10/28/21 05:53 10/28/21 05:53 10/28/21 05:53 10/28/21 12:21 Results - Labs CBC & Chem 7: 10/26/21 15:58 10/28/21 07:47 Labs: Abnormal lab results 10/28/21 10/28/21 Range/Units 07:47 Unknown Chloride 108.8 H (98-107) mmol/L BUN 6 L (7-17) mg/dL Calcium 8.0 L (8.4-10.2) mg/dL Total Protein 5.4 L (6.3-8.2) g/dL Albumin 3.4 L (3.9-5) g/dL Coronavirus (PCR) Positive A (Negative)
--- NOTE | 2021-10-28 20:32 | Cat Scan Report ---
CT head/brain wo con INDICATION: fall. TECHNIQUE: CT head. All CT scans at this location are performed using CT dose reduction for ALARA by means of automated exposure control. COMPARISON: 10/26/21. FINDINGS: Intracranial: Pham-white matter differentiation is maintained. No intracranial hemorrhage. No extra a xial collection. No hydrocephalus. No herniation. Sinuses: Mucosal retention cyst in the left maxillary sinus. Otherwise, paranasal sinuses and mastoid air cells are essentially clear. Orbits: Globes are intact. Calvarium: No acute fracture. IMPRESSION: 1. No acute intracranial abnormality. Signer Name: Mohamud Santoro MD Signed: 10/28/2021 8:28 PM Workstation Name: [id number]
[2021-10-29] MEDS: SODIUM CHLORIDE 0.9% IV SCH ×3 (06:16→22:58)
[2021-10-29] MEDS: PHENYTOIN IV SCH ×3 (06:16→22:58)
--- NOTE | 2021-10-29 09:13 | Progress Note ---
Assessment and Plan Assessment and plan: #Status epilepticus #Seizure disorder, uncontrolled-improving #medication non-compliance -Keppra and phenytoin loaded in the emergency department -will continue phenytoin, keppra increased to 1000mg BID; will order Keppra pending -PRN ativan for breakthrough seizures -Neurology consulted, recommendations: EEG and MRI of the brain with/without contrast ordered -UDS positive for marijuana; patient confirmed use -patient stopped taking Keppra and phenytoin on her own and has had breakthrough seizures which has recently worsened, counseled about importance of taking medications and follow up with Neurology. #Asymptomatic COVID-19 infection -COVID PCR positive -Patient has no symptoms at this time will manage with supportive care -Continue isolation until 11/02 #Acute metabolic encephalopathy-improved -CT head negative -likely secondary to seizures #Mild protein calorie malnutrition -albumin 3.4 -nutrition consult #Marijuana use -UDS positive -patient counseled about cessation due to seizure disorder- +10 minutes #Advanced care planning -Disease education data, care plan discussed, diagnoses discussed, prognosis discussed, patient family knowledge understanding and agreement with care plan, +30 minutes. History Interval history: Patient seen this morning. She is currently stable. We discussed neurology recommendations and pending MRI. She has no complaints at this time. Hospitalist Physical - Physical exam Narrative exam: GENERAL: Thin woman. Lying in the bed in no acute distress. HEENT: Normocephalic. Atraumatic. CHEST/LUNGS: CTAB on room air HEART/CARDIOVASCULAR: RRR. No murmur, rubs or gallops appreciated. ABDOMEN: +BS. NT/ND. SKIN: No rashes noted. NEURO: No focal motor deficit. Follows all commands. MUSCULOSKELETAL: No joint effusion EXTREMITIES: No cyanosis, clubbing or edema. PSYCH: Cooperative. - Constitutional Vitals: Temp Pulse Resp BP Pulse Ox 97.0 F L 76 18 124/80 100 10/29/21 03:00 10/29/21 03:00 10/29/21 03:00 10/29/21 03:00 10/29/21 03:00 General appearance: Present: mild distress HEART Score - HEART Score Troponin: Troponin T < 0.010 ng/mL (0.00-0.029) 10/26/21 15:58 Results - Labs CBC & Chem 7: 10/26/21 15:58 10/28/21 07:47 Labs: Laboratory Last Values WBC 3.0 K/mm3 (4.5-11.0) L 10/26/21 15:58 RBC 4.41 M/mm3 (3.65-5.03) 10/26/21 15:58 Hgb 13.3 gm/dl (10.1-14.3) 10/26/21 15:58 Hct 39.5 % (30.3-42.9) 10/26/21 15:58 MCV 90 fl (79-97) 10/26/21 15:58 MCH 30 pg (28-32) 10/26/21 15:58 MCHC 34 % (30-34) 10/26/21 15:58 RDW 16.3 % (13.2-15.2) H 10/26/21 15:58 Plt Count 141 K/mm3 (140-440) 10/26/21 15:58 [place] % (Auto) Chief Wheelage Clerk 10/26/21 15:58 Add Manual Diff Complete 10/26/21 15:58 Total Counted 100 10/26/21 15:58 Seg Neuts % (Manual) 59.0 % (40.0-70.0) 10/26/21 15:58 Band Neutrophils % 0 % 10/26/21 15:58 Lymphocytes % (Manual) 27.0 % (13.4-35.0) 10/26/21 15:58 Reactive Lymphs % (Man) 0 % 10/26/21 15:58 Monocytes % (Manual) 14.0 % (0.0-7.3) H 10/26/21 15:58 Eosinophils % (Manual) 0 % (0.0-4.3) 10/26/21 15:58 Basophils % (Manual) 0 % (0.0-1.8) 10/26/21 15:58 Metamyelocytes % 0 % 10/26/21 15:58 Myelocytes % 0 % 10/26/21 15:58 Promyelocytes % 0 % 10/26/21 15:58 Blast Cells % 0 % 10/26/21 15:58 Nucleated RBC % Not Reportable 10/26/21 15:58 Seg Neutrophils # Man 1.8 K/mm3 (1.8-7.7) 10/26/21 15:58 Band Neutrophils # 0.0 K/mm3 10/26/21 15:58 Lymphocytes # (Manual) 0.8 K/mm3 (1.2-5.4) L 10/26/21 15:58 Abs React Lymphs (Man) 0.0 K/mm3 10/26/21 15:58 Monocytes # (Manual) 0.4 K/mm3 (0.0-0.8) 10/26/21 15:58 Eosinophils # (Manual) 0.0 K/mm3 (0.0-0.4) 10/26/21 15:58 Basophils # (Manual) 0.0 K/mm3 (0.0-0.1) 10/26/21 15:58 Metamyelocytes # 0.0 K/mm3 10/26/21 15:58 Myelocytes # 0.0 K/mm3 10/26/21 15:58 Promyelocytes # 0.0 K/mm3 10/26/21 15:58 Blast Cells # 0.0 K/mm3 10/26/21 15:58 WBC Morphology Not Reportable 10/26/21 15:58 Hypersegmented Neuts Not Reportable 10/26/21 15:58 Hyposegmented Neuts Not Reportable 10/26/21 15:58 Hypogranular Neuts Not Reportable 10/26/21 15:58 Smudge Cells Not Reportable 10/26/21 15:58 Toxic Granulation Not Reportable 10/26/21 15:58 Toxic Vacuolation Not Reportable 10/26/21 15:58 Dohle Bodies Not Reportable 10/26/21 15:58 Pelger-Huet Anomaly Not Reportable 10/26/21 15:58 Joseph Rods Not Reportable 10/26/21 15:58 Platelet Estimate Consistent w auto 10/26/21 15:58 Clumped Platelets Not Reportable 10/26/21 15:58 Plt Clumps, EDTA Not Reportable 10/26/21 15:58 Large Platelets Not Reportable 10/26/21 15:58 Giant Platelets Not Reportable 10/26/21 15:58 Platelet Satelliting Not Reportable 10/26/21 15:58 Plt Morphology Comment Not Reportable 10/26/21 15:58 RBC Morphology Not Reportable 10/26/21 15:58 Dimorphic RBCs Not Reportable 10/26/21 15:58 Polychromasia Not Reportable 10/26/21 15:58 Hypochromasia Not Reportable 10/26/21 15:58 Poikilocytosis Not Reportable 10/26/21 15:58 Anisocytosis 1+ 10/26/21 15:58 Microcytosis Not Reportable 10/26/21 15:58 Macrocytosis Not Reportable 10/26/21 15:58 Spherocytes Not Reportable 10/26/21 15:58 Pappenheimer Bodies Not Reportable 10/26/21 15:58 Sickle Cells Not Reportable 10/26/21 15:58 Target Cells Not Reportable 10/26/21 15:58 Tear Drop Cells Not Reportable 10/26/21 15:58 Ovalocytes Not Reportable 10/26/21 15:58 Helmet Cells Not Reportable 10/26/21 15:58 [place] Bodies Not Reportable 10/26/21 15:58 Only Rings Not Reportable 10/26/21 15:58 [place] Cells Not Reportable 10/26/21 15:58 Bite Cells Not Reportable 10/26/21 15:58 Crenated Cell Not Reportable 10/26/21 15:58 Elliptocytes Not Reportable 10/26/21 15:58 Acanthocytes (Spur) Not Reportable 10/26/21 15:58 Rouleaux Not Reportable 10/26/21 15:58 Hemoglobin C Crystals Not Reportable 10/26/21 15:58 Schistocytes Not Reportable 10/26/21 15:58 Malaria parasites Not Reportable 10/26/21 15:58 Conrado Bodies Not Reportable 10/26/21 15:58 Hem Pathologist Commnt No 10/26/21 15:58 PT 13.9 Sec. (12.2-14.9) 10/26/21 15:58 INR 0.97 (0.87-1.13) 10/26/21 15:58 Sodium 141 mmol/L (137-145) 10/28/21 07:47 Potassium 3.8 mmol/L (3.6-5.0) 10/28/21 07:47 Chloride 108.8 mmol/L (98-107) H 10/28/21 07:47 Carbon Dioxide 22 mmol/L (22-30) 10/28/21 07:47 Anion Gap 14 mmol/L 10/28/21 07:47 BUN 6 mg/dL (7-17) L 10/28/21 07:47 Creatinine 0.7 mg/dL (0.6-1.2) 10/28/21 07:47 Estimated GFR > 60 ml/min 10/28/21 07:47 BUN/Creatinine Ratio 9 % 10/28/21 07:47 Glucose 75 mg/dL (65-100) 10/28/21 07:47 Calcium 8.0 mg/dL (8.4-10.2) L 10/28/21 07:47 Magnesium 1.70 mg/dL (1.7-2.3) 10/26/21 15:58 Total Bilirubin 0.20 mg/dL (0.1-1.2) 10/28/21 07:47 AST 21 units/L (5-40) 10/28/21 07:47 ALT 7 units/L (7-56) 10/28/21 07:47 Alkaline Phosphatase 57 units/L (35-129) 10/28/21 07:47 Total Creatine Kinase 153 units/L (30-135) H 10/29/21 06:08 CK-MB (CK-2) 1.1 ng/mL (0.0-4.0) 10/26/21 15:58 CK-MB (CK-2) Rel Index 0.7 (0-4) 10/26/21 15:58 Troponin T < 0.010 ng/mL (0.00-0.029) 10/26/21 15:58 Total Protein 5.4 g/dL (6.3-8.2) L 10/28/21 07:47 Albumin 3.4 g/dL (3.9-5) L 10/28/21 07:47 Albumin/Globulin Ratio 1.7 % 10/28/21 07:47 Urine Opiates Screen Presumptive negative 10/27/21 23:10 Urine Methadone Screen Presumptive negative 10/27/21 23:10 Ur Barbiturates Screen Presumptive negative 10/27/21 23:10 Ur Phencyclidine Scrn Presumptive negative 10/27/21 23:10 Ur Amphetamines Screen Presumptive negative 10/27/21 23:10 U Benzodiazepines Scrn Presumptive negative 10/27/21 23:10 Urine Cocaine Screen Presumptive negative 10/27/21 23:10 U Marijuana (THC) Screen Presumptive positive 10/27/21 23:10 Drugs of Abuse Note Disclamer 10/27/21 23:10 Coronavirus (PCR) Positive (Negative) A 10/28/21 Unknown Casey/IV: Voiding Method Bedpan Active Medications - Current Medications Current Medications: Generic Name Dose Route Start Last Admin Trade Name Freq PRN Reason Stop Dose Admin Acetaminophen 650 mg 10/26/21 20:05 10/26/21 22:40 Acetaminophen 325 Mg Tab PO 650 mg Q4H PRN Administration Pain MILD(1-3)/Fever >100.5/LEVINE Albuterol 2.5 mg 10/26/21 20:05 Albuterol 2.5 Mg/3 Ml Nebu IH Q4HRT PRN Shortness Of Breath Hydromorphone HCl 0.5 mg 10/26/21 20:05 Hydromorphone 0.5 Mg/0.5 Ml Inj IV Q23H PRN Pain , Severe (7-10) Sodium Chloride 1,000 mls @ 125 mls/hr 10/26/21 20:15 10/28/21 10:03 Nacl 0.9% 1000 Ml IV 125 mls/hr DIRECT SCARLETT Administration Phenytoin 200 mg/ Sodium 200 mls @ 612 mls/hr 10/27/21 14:00 10/29/21 06:16 Chloride IV 612 mls/hr Q8H SCARLETT Administration Levetiracetam 1,000 mg/ 110 mls @ 400 mls/hr 10/29/21 10:00 Dextrose IV Q12HR SCARLETT Lorazepam 2 mg 10/28/21 09:54 10/29/21 03:10 Lorazepam 2 Mg/Ml Vial IV 2 mg Q6H PRN Administration Seizures Ondansetron HCl 4 mg 10/26/21 20:05 Ondansetron 4 Mg/2 Ml Inj IV Q8H PRN Nausea And Vomiting Oxycodone/Acetaminophen 1 tab 10/28/21 09:00 Oxycodone /Acetaminophen 5-325mg Tab PO Q8H PRN Pain, Moderate (4-6) Sodium Chloride 10 ml 10/26/21 22:00 10/28/21 23:42 Sodium Chloride 0.9% 10 Ml Flush Syringe IV 10 ml BID SCARLETT Administration Sodium Chloride 10 ml 10/26/21 20:05 10/27/21 23:53 Sodium Chloride 0.9% 10 Ml Flush Syringe IV 10 ml PRN PRN Administration LINE FLUSH
[2021-10-29] MEDS: levETIRAcetam 1,000 MG in DEXTROSE 5% IN WATER 100 ML IV SCH ×2 (09:48→22:59)
[2021-10-29] MEDS: SODIUM CHLORIDE 0.9% 1000 ML 1,000 ML IV SCH (17:50)
[2021-10-29] MEDS: levETIRAcetam 750 MG in DEXTROSE 5% IN WATER 100 ML IV SCH (22:59)
[2021-10-29] MEDS: ONDANSETRON 4 MG/2 ML INJ IV PRN (23:58)
[2021-10-30] MEDS: PHENYTOIN IV SCH ×2 (05:06→15:59)
[2021-10-30] MEDS: SODIUM CHLORIDE 0.9% IV SCH ×2 (05:06→15:59)
[2021-10-30] MEDS ORDERED: diphenhydrAMINE 25 MG CAP PO PRN (10:00)
[2021-10-30] MEDS: levETIRAcetam 500 MG TAB PO SCH ×2 (10:20→21:17)
--- NOTE | 2021-10-30 15:00 | Progress Note ---
Assessment and Plan Assessment and plan: #Status epilepticus #Seizure disorder, uncontrolled-improving #medication non-compliance #diplopia -Keppra and phenytoin loaded in the emergency department -continue phenytoin 200mg BID and keppra 100mg BID -PRN ativan for breakthrough seizures -Neurology consulted, recommendations: EEG and MRI of the brain with/without contrast pending -UDS positive for marijuana; patient confirmed use -patient stopped taking Keppra and phenytoin on her own and has had breakthrough seizures which has recently worsened, counseled about importance of taking medications and follow up with Neurology. #Asymptomatic COVID-19 infection -COVID PCR positive -Patient has no symptoms at this time will manage with supportive care -Continue isolation until 11/02 #Acute metabolic encephalopathy-resolved -CT head negative -likely secondary to seizures #Mild protein calorie malnutrition -albumin 3.4 -nutrition consult #Marijuana use -UDS positive -patient counseled about cessation due to seizure disorder- +10 minutes #Falls -patient has fallen twice since admission -CT scan of the head negative x2; MRI brain formal read pending -PT evaluation ordered #Advanced care planning -Disease education data, care plan discussed, diagnoses discussed, prognosis discussed, patient family knowledge understanding and agreement with care plan, +30 minutes. History Interval history: Patient seen several times today. She has been without seizure activity x24 hours. Prior to MRI patient had no complaints and the plan was to discharge after MRI. After MRI was obtained, per nursing when the patient was brought back to the room she fell and hit her head. At that time the patient endorsed double vision. I reexamined the patient at approximately 2:30 PM. She still is experiencing diplopia and states that she has had this issue since the seizure medications were restarted. Discharge held to await MRI results and PT examination. Hospitalist Physical - Physical exam Narrative exam: GENERAL: Thin woman. Lying in the bed in no acute distress. HEENT: Normocephalic. Atraumatic. PERRLA. CHEST/LUNGS: CTAB on room air HEART/CARDIOVASCULAR: RRR. No murmur, rubs or gallops appreciated. ABDOMEN: +BS. NT/ND. SKIN: No rashes noted. NEURO: No focal motor deficit. Follows all commands. MUSCULOSKELETAL: No joint effusion EXTREMITIES: No cyanosis, clubbing or edema. PSYCH: Cooperative. - Constitutional Vitals: Temp Pulse Resp BP Pulse Ox 98.4 F 77 20 113/79 98 10/30/21 05:40 10/30/21 05:40 10/30/21 05:40 10/30/21 05:40 10/30/21 05:40 General appearance: Present: mild distress HEART Score - HEART Score Troponin: Troponin T < 0.010 ng/mL (0.00-0.029) 10/26/21 15:58 Results - Labs CBC & Chem 7: 10/26/21 15:58 10/28/21 07:47 Labs: Laboratory Last Values WBC 3.0 K/mm3 (4.5-11.0) L 10/26/21 15:58 RBC 4.41 M/mm3 (3.65-5.03) 10/26/21 15:58 Hgb 13.3 gm/dl (10.1-14.3) 10/26/21 15:58 Hct 39.5 % (30.3-42.9) 10/26/21 15:58 MCV 90 fl (79-97) 10/26/21 15:58 MCH 30 pg (28-32) 10/26/21 15:58 MCHC 34 % (30-34) 10/26/21 15:58 RDW 16.3 % (13.2-15.2) H 10/26/21 15:58 Plt Count 141 K/mm3 (140-440) 10/26/21 15:58 [place] % (Auto) Digester Operator 10/26/21 15:58 Add Manual Diff Complete 10/26/21 15:58 Total Counted 100 10/26/21 15:58 Seg Neuts % (Manual) 59.0 % (40.0-70.0) 10/26/21 15:58 Band Neutrophils % 0 % 10/26/21 15:58 Lymphocytes % (Manual) 27.0 % (13.4-35.0) 10/26/21 15:58 Reactive Lymphs % (Man) 0 % 10/26/21 15:58 Monocytes % (Manual) 14.0 % (0.0-7.3) H 10/26/21 15:58 Eosinophils % (Manual) 0 % (0.0-4.3) 10/26/21 15:58 Basophils % (Manual) 0 % (0.0-1.8) 10/26/21 15:58 Metamyelocytes % 0 % 10/26/21 15:58 Myelocytes % 0 % 10/26/21 15:58 Promyelocytes % 0 % 10/26/21 15:58 Blast Cells % 0 % 10/26/21 15:58 Nucleated RBC % Not Reportable 10/26/21 15:58 Seg Neutrophils # Man 1.8 K/mm3 (1.8-7.7) 10/26/21 15:58 Band Neutrophils # 0.0 K/mm3 10/26/21 15:58 Lymphocytes # (Manual) 0.8 K/mm3 (1.2-5.4) L 10/26/21 15:58 Abs React Lymphs (Man) 0.0 K/mm3 10/26/21 15:58 Monocytes # (Manual) 0.4 K/mm3 (0.0-0.8) 10/26/21 15:58 Eosinophils # (Manual) 0.0 K/mm3 (0.0-0.4) 10/26/21 15:58 Basophils # (Manual) 0.0 K/mm3 (0.0-0.1) 10/26/21 15:58 Metamyelocytes # 0.0 K/mm3 10/26/21 15:58 Myelocytes # 0.0 K/mm3 10/26/21 15:58 Promyelocytes # 0.0 K/mm3 10/26/21 15:58 Blast Cells # 0.0 K/mm3 10/26/21 15:58 WBC Morphology Not Reportable 10/26/21 15:58 Hypersegmented Neuts Not Reportable 10/26/21 15:58 Hyposegmented Neuts Not Reportable 10/26/21 15:58 Hypogranular Neuts Not Reportable 10/26/21 15:58 Smudge Cells Not Reportable 10/26/21 15:58 Toxic Granulation Not Reportable 10/26/21 15:58 Toxic Vacuolation Not Reportable 10/26/21 15:58 Dohle Bodies Not Reportable 10/26/21 15:58 Pelger-Huet Anomaly Not Reportable 10/26/21 15:58 Joseph Rods Not Reportable 10/26/21 15:58 Platelet Estimate Consistent w auto 10/26/21 15:58 Clumped Platelets Not Reportable 10/26/21 15:58 Plt Clumps, EDTA Not Reportable 10/26/21 15:58 Large Platelets Not Reportable 10/26/21 15:58 Giant Platelets Not Reportable 10/26/21 15:58 Platelet Satelliting Not Reportable 10/26/21 15:58 Plt Morphology Comment Not Reportable 10/26/21 15:58 RBC Morphology Not Reportable 10/26/21 15:58 Dimorphic RBCs Not Reportable 10/26/21 15:58 Polychromasia Not Reportable 10/26/21 15:58 Hypochromasia Not Reportable 10/26/21 15:58 Poikilocytosis Not Reportable 10/26/21 15:58 Anisocytosis 1+ 10/26/21 15:58 Microcytosis Not Reportable 10/26/21 15:58 Macrocytosis Not Reportable 10/26/21 15:58 Spherocytes Not Reportable 10/26/21 15:58 Pappenheimer Bodies Not Reportable 10/26/21 15:58 Sickle Cells Not Reportable 10/26/21 15:58 Target Cells Not Reportable 10/26/21 15:58 Tear Drop Cells Not Reportable 10/26/21 15:58 Ovalocytes Not Reportable 10/26/21 15:58 Helmet Cells Not Reportable 10/26/21 15:58 Jansen-Crocker Bodies Not Reportable 10/26/21 15:58 [place] Rings Not Reportable 10/26/21 15:58 Alma Rosa Cells Not Reportable 10/26/21 15:58 Bite Cells Not Reportable 10/26/21 15:58 Crenated Cell Not Reportable 10/26/21 15:58 Elliptocytes Not Reportable 10/26/21 15:58 Acanthocytes (Spur) Not Reportable 10/26/21 15:58 Rouleaux Not Reportable 10/26/21 15:58 Hemoglobin C Crystals Not Reportable 10/26/21 15:58 Schistocytes Not Reportable 10/26/21 15:58 Malaria parasites Not Reportable 10/26/21 15:58 Conrado Bodies Not Reportable 10/26/21 15:58 Hem Pathologist Commnt No 10/26/21 15:58 PT 13.9 Sec. (12.2-14.9) 10/26/21 15:58 INR 0.97 (0.87-1.13) 10/26/21 15:58 Sodium 141 mmol/L (137-145) 10/28/21 07:47 Potassium 3.8 mmol/L (3.6-5.0) 10/28/21 07:47 Chloride 108.8 mmol/L (98-107) H 10/28/21 07:47 Carbon Dioxide 22 mmol/L (22-30) 10/28/21 07:47 Anion Gap 14 mmol/L 10/28/21 07:47 BUN 6 mg/dL (7-17) L 10/28/21 07:47 Creatinine 0.7 mg/dL (0.6-1.2) 10/28/21 07:47 Estimated GFR > 60 ml/min 10/28/21 07:47 BUN/Creatinine Ratio 9 % 10/28/21 07:47 Glucose 75 mg/dL (65-100) 10/28/21 07:47 Calcium 8.0 mg/dL (8.4-10.2) L 10/28/21 07:47 Magnesium 1.70 mg/dL (1.7-2.3) 10/26/21 15:58 Total Bilirubin 0.20 mg/dL (0.1-1.2) 10/28/21 07:47 AST 21 units/L (5-40) 10/28/21 07:47 ALT 7 units/L (7-56) 10/28/21 07:47 Alkaline Phosphatase 57 units/L (35-129) 10/28/21 07:47 Total Creatine Kinase 153 units/L (30-135) H 10/29/21 06:08 CK-MB (CK-2) 1.1 ng/mL (0.0-4.0) 10/26/21 15:58 CK-MB (CK-2) Rel Index 0.7 (0-4) 10/26/21 15:58 Troponin T < 0.010 ng/mL (0.00-0.029) 10/26/21 15:58 Total Protein 5.4 g/dL (6.3-8.2) L 10/28/21 07:47 Albumin 3.4 g/dL (3.9-5) L 10/28/21 07:47 Albumin/Globulin Ratio 1.7 % 10/28/21 07:47 Urine Opiates Screen Presumptive negative 10/27/21 23:10 Urine Methadone Screen Presumptive negative 10/27/21 23:10 Ur Barbiturates Screen Presumptive negative 10/27/21 23:10 Ur Phencyclidine Scrn Presumptive negative 10/27/21 23:10 Ur Amphetamines Screen Presumptive negative 10/27/21 23:10 U Benzodiazepines Scrn Presumptive negative 10/27/21 23:10 Urine Cocaine Screen Presumptive negative 10/27/21 23:10 U Marijuana (THC) Screen Presumptive positive 10/27/21 23:10 Drugs of Abuse Note Disclamer 10/27/21 23:10 Coronavirus (PCR) Positive (Negative) A 10/28/21 Unknown Casey/IV: Voiding Method Bedpan Active Medications - Current Medications Current Medications: Generic Name Dose Route Start Last Admin Trade Name Freq PRN Reason Stop Dose Admin Acetaminophen 650 mg 10/26/21 20:05 10/26/21 22:40 Acetaminophen 325 Mg Tab PO 650 mg Q4H PRN Administration Pain MILD(1-3)/Fever >100.5/LEVINE Albuterol 2.5 mg 10/26/21 20:05 Albuterol 2.5 Mg/3 Ml Nebu IH Q4HRT PRN Shortness Of Breath Diphenhydramine HCl 25 mg 10/30/21 10:00 Diphenhydramine 25 Mg Cap PO Q8H PRN Itching Hydromorphone HCl 0.5 mg 10/26/21 20:05 Hydromorphone 0.5 Mg/0.5 Ml Inj IV Q23H PRN Pain , Severe (7-10) Phenytoin 200 mg/ Sodium 200 mls @ 612 mls/hr 10/30/21 22:00 Chloride IV BID SCARLETT Levetiracetam 1,000 mg 10/30/21 10:00 10/30/21 10:20 Levetiracetam 500 Mg Tab PO 1,000 mg BID SCARLETT Administration Lorazepam 2 mg 10/28/21 09:54 10/29/21 03:10 Lorazepam 2 Mg/Ml Vial IV 2 mg Q6H PRN Administration Seizures Ondansetron HCl 4 mg 10/26/21 20:05 10/29/21 23:58 Ondansetron 4 Mg/2 Ml Inj IV 4 mg Q8H PRN Administration Nausea And Vomiting Oxycodone/Acetaminophen 1 tab 10/28/21 09:00 Oxycodone /Acetaminophen 5-325mg Tab PO Q8H PRN Pain, Moderate (4-6) Sodium Chloride 10 ml 10/26/21 22:00 10/30/21 10:20 Sodium Chloride 0.9% 10 Ml Flush Syringe IV 10 ml BID SCARLETT Administration Sodium Chloride 10 ml 10/26/21 20:05 10/27/21 23:53 Sodium Chloride 0.9% 10 Ml Flush Syringe IV 10 ml PRN PRN Administration LINE FLUSH
--- NOTE | 2021-10-30 15:32 | Cat Scan Report ---
CT HEAD WITHOUT CONTRAST INDICATION / CLINICAL INFORMATION: closed head injury, double vision. TECHNIQUE: All CT scans at this location are performed using CT dose reduction for ALARA by means of automated exposure control. COMPARISON: 10/28/2021 CT FINDINGS: CEREBRAL/CEREBELLAR PARENCHYMA: The cerebral and cerebellar hemispheres are normal for age. No CT j luis dence for an acute or subacute territorial infarct. HEMORRHAGE: No acute intra-axial hemorrhage or extra-axial fluid collection. MASS: No mass or mass effect. VENTRICULAR SYSTEM: Normal in size and morphology for the patient's age. ORBITS: Normal as visualized. SOFT TISSUES/SKULL: No scalp hematoma or skull fracture. PARANASAL SINUSES/MASTOID AIR CELLS: Stable left maxillary sinus mucous retention cyst. Otherwise pallavi ar. IMPRESSION: 1. No acute intracranial process. Signer Name: Ricardo Sampson MD Signed: 10/30/2021 3:27 PM Workstation Name: [id number]
[2021-10-30] MEDS: oxyCODONE /ACETAMINOPHEN 5-325MG TAB PO PRN (16:03)
--- NOTE | 2021-10-30 16:30 | Magnetic Resonance Report ---
MR brain wo/w con INDICATION / CLINICAL INFORMATION: 46 years Female; SEIZURE. TECHNIQUE: Multiplanar, multisequence MR images of the brain were obtained. COMPARISON: CT-10/28/2021 FINDINGS: BRAIN / INTRACRANIAL CONTENTS: No acute hemorrhage, mass effect, midline shift, hydrocephalus, or acu te, large territorial infarct. No chronic infarct or atrophy. There are mild, predominantly peripheral areas of increased signal intensity on FLAIR imaging in the white matter of the cerebral hemispheres. These are nonspecific findings and may be related to microa ngiopathy (hypertension, diabetes, atherosclerosis), given the patient's age. I see no signs of abnormal enhancement following contrast administration. CRANIOCERVICAL JUNCTION: No significant abnormality. VASCULAR FLOW-VOIDS: No significant abnormality. ORBITS: No significant abnormality of visualized orbits. SINUSES / MASTOIDS: Mucous retention cyst/polyp is seen in the left maxillary antrum. Prominent soft tissue is seen in the roof of the nasopharynx, presumably related to reactive adenoida l tissue. Please clinically correlate. ADDITIONAL FINDINGS: None. IMPRESSION: 1. No focal mass, hemorrhage, hydrocephalus, or acute ischemia. Signer Name: Shamar Helm MD, III Signed: 10/30/2021 4:25 PM Workstation Name: [id number]
--- NOTE | 2021-10-30 23:56 | Consultation ---
History of Present Illness Consult date: 10/30/21 Reason for Consult: Seizures Chief complaint: Seizures History of present illness: Televideo not available due to covid-19 isolation protocol. 46 yo female with seizure d/o, noncompliant with seizure meds, who presented in the ED with a generalized tonic clonic seizure that lasted for 5 minutes. She was loaded with Keppra and phenytoin. Per EMR, she has been seizure-free for the last 24 hours. Per RN, post-MRI Brain, patient suffered a fall in the room and suffered a closed head injury. Patient complained to the RN about double vision. Past History Past Medical History: seizures, other (See HPI) Past Surgical History: Other (Spine surgery) Social history: no significant social history, other (Unable to obtain) Family history: hypertension Medications and Allergies Allergies Allergy/AdvReac Type Severity Reaction Status Date / Time morphine Allergy Unknown Verified 10/26/21 14:48 Home Medications Medication Instructions Recorded Confirmed Last Taken Type Phenytoin [Dilantin] 200 mg PO Q8HR 30 Days #180 capsule 10/30/21 Unknown Rx levETIRAcetam [Keppra TAB] 1,000 mg PO BID 30 Days #120 tablet 10/30/21 Unknown Rx Active Meds: Active Medications Acetaminophen (Acetaminophen 325 Mg Tab) 650 mg PO Q4H PRN PRN Reason: Pain MILD(1-3)/Fever >100.5/LEVINE Last Admin: 10/26/21 22:40 Dose: 650 mg Albuterol (Albuterol 2.5 Mg/3 Ml Nebu) 2.5 mg IH Q4HRT PRN PRN Reason: Shortness Of Breath Diphenhydramine HCl (Diphenhydramine 25 Mg Cap) 25 mg PO Q8H PRN PRN Reason: Itching Hydromorphone HCl (Hydromorphone 0.5 Mg/0.5 Ml Inj) 0.5 mg IV Q23H PRN PRN Reason: Pain , Severe (7-10) Phenytoin 200 mg/ Sodium (Chloride) 200 mls @ 612 mls/hr IV BID SCARLETT Levetiracetam (Levetiracetam 500 Mg Tab) 1,000 mg PO BID SCARLETT Last Admin: 10/30/21 21:17 Dose: 1,000 mg Lorazepam (Lorazepam 2 Mg/Ml Vial) 2 mg IV Q6H PRN PRN Reason: Seizures Last Admin: 10/29/21 03:10 Dose: 2 mg Ondansetron HCl (Ondansetron 4 Mg/2 Ml Inj) 4 mg IV Q8H PRN PRN Reason: Nausea And Vomiting Last Admin: 10/29/21 23:58 Dose: 4 mg Oxycodone/Acetaminophen (Oxycodone /Acetaminophen 5-325mg Tab) 1 tab PO Q8H PRN PRN Reason: Pain, Moderate (4-6) Last Admin: 10/30/21 16:03 Dose: 1 tab Sodium Chloride (Sodium Chloride 0.9% 10 Ml Flush Syringe) 10 ml IV BID SCARLETT Last Admin: 10/30/21 21:17 Dose: 10 ml Sodium Chloride (Sodium Chloride 0.9% 10 Ml Flush Syringe) 10 ml IV PRN PRN PRN Reason: LINE FLUSH Last Admin: 10/27/21 23:53 Dose: 10 ml Physical Examination - Vital Signs Vital Signs: Vital Signs Pulse Resp Pulse Ox 101 H 20 100 10/26/21 14:24 10/26/21 14:24 10/26/21 14:24 Results - Laboratory Findings CBC and BMP: 10/26/21 15:58 10/28/21 07:47 Abnormal Lab Findings: Abnormal Labs 10/26/21 10/26/21 10/27/21 15:58 15:58 13:31 WBC 3.0 L RDW 16.3 H Monocytes % (Manual) 14.0 H Lymphocytes # (Manual) 0.8 L Sodium 135 L Chloride 107.9 H Carbon Dioxide 20 L 20 L BUN Calcium 8.0 L Total Creatine Kinase 145 H Total Protein Albumin Phenytoin Coronavirus (PCR) 10/28/21 10/28/21 10/29/21 07:47 Unknown 06:08 WBC RDW Monocytes % (Manual) Lymphocytes # (Manual) Sodium Chloride 108.8 H Carbon Dioxide BUN 6 L Calcium 8.0 L Total Creatine Kinase 153 H Total Protein 5.4 L Albumin 3.4 L Phenytoin Coronavirus (PCR) Positive A 10/30/21 15:54 WBC RDW Monocytes % (Manual) Lymphocytes # (Manual) Sodium Chloride Carbon Dioxide BUN Calcium Total Creatine Kinase Total Protein Albumin Phenytoin 43.9 H* Coronavirus (PCR) Assessment and Plan 46 yo female with seizure d/o, noncompliant with seizure meds, who presented in the ED with a generalized tonic clonic seizure that lasted for 5 minutes. She was loaded with Keppra and phenytoin. 1. Seizure d/o - continue Keppra 1 g bid and hold dilantin 200 mg bid (likely needs dilantin 250 mg po qhs) in the setting of a supratherapeutic dilantin level; aggressive treatment of underlying infection / inflammation / electrolyte (maintain eunatremia / eumagnesemia) / metabolic abnormalities per primary team; seizure/fall precautions; seizure restrictions. 2. Therapeutic Drug Monitoring - agree with confirm dilantin level in AM. 3. Covid-19 - lowers seizure threshold; management per primary team. 4. Fall (initial encounter) / Closed Head Injury - unclear if dilantin level is true or a lab error and contributed to the fall; monitor clinically with neurocheck q4 hours. 5. Diplopia - cta head/neck w/ wo contrast. Cory Slaughter MD Neurology
[2021-10-31 06:43] LABS: Alanine Aminotransferase 35 units/L (7-56); Albumin 3.7 g/dL (3.9-5); Blood Urea Nitrogen 6 mg/dL (7-17); Calcium 8.7 mg/dL (8.4-10.2); Hemolysis Index 3
[2021-10-31 06:57] LABS: BUN/Creatinine Ratio 10
[2021-10-31] MEDS: levETIRAcetam 500 MG TAB PO SCH ×2 (09:14→21:31)
--- NOTE | 2021-10-31 16:13 | Progress Note ---
Assessment and Plan Assessment and plan: #Status epilepticusresolved #Seizure disorderimproving #medication non-compliance #diplopia #Supratherapeutic Dilantin levelimproving -Keppra and phenytoin loaded in the emergency department -continue phenytoin 300 mg daily and keppra 1000mg BID. Dilantin level: 43.9--> 37.5. Supratherapeutic Dilantin levels could also be worsening patient's cognition and mobility. Plan to reevaluate Dilantin levels with motor mechanics tomorrow. -PRN ativan for breakthrough seizures -Neurology consulted, recommendations: MRI brain with and without contrast unremarkable. -UDS positive for marijuana; patient confirmed use -patient stopped taking Keppra and phenytoin on her own and has had breakthrough seizures which has recently worsened, counseled about importance of taking medications and follow up with Neurology. Physical therapy recommending subacute rehab #Asymptomatic COVID-19 infection -COVID PCR positive -Patient has no symptoms at this time will manage with supportive care -Continue isolation until 11/02 #Acute metabolic encephalopathy-resolved -CT head negative -likely secondary to seizures #Mild protein calorie malnutrition -albumin 3.4 -nutrition consult #Marijuana use -UDS positive -patient counseled about cessation due to seizure disorder- +10 minutes #Falls -patient has fallen twice since admission -CT scan of the head negative x2; MRI brain formal read pending -PT evaluation ordered #Advanced care planning -Disease education data, care plan discussed, diagnoses discussed, prognosis discussed, patient family knowledge understanding and agreement with care plan, +30 minutes. #Discharge planning - Patient is pending return of Dilantin level to baseline and authorization of subacute rehab. - Case management has been made aware. Disposition Plan: Continue medical management Total Time Spent with Patient (Minutes): 45 minutes History Interval history: No acute events overnight. Hospitalist Physical - Constitutional Vitals: Temp Pulse Resp BP Pulse Ox 98.1 F 64 18 133/76 100 10/31/21 11:55 10/31/21 11:55 10/31/21 11:55 10/31/21 11:55 10/31/21 11:55 General appearance: Present: mild distress, well-nourished - EENT Eyes: Present: PERRL, EOM intact ENT: hearing intact, clear oral mucosa, dentition normal - Neck Neck: Present: supple, normal ROM - Respiratory Respiratory effort: normal Respiratory: bilateral: CTA - Cardiovascular Rhythm: regular Heart Sounds: Present: S1 & S2 - Extremities Extremities: no ischemia, pulses intact, pulses symmetrical, No edema, normal temperature, normal color Peripheral Pulses: within normal limits - Abdominal General gastrointestinal: soft, non-tender, non-distended, normal bowel sounds - Integumentary Integumentary: Present: clear, warm, dry - Psychiatric Psychiatric: appropriate mood/affect, intact judgment & insight, memory intact, cooperative - Neurologic Neurologic: CNII-XII intact, moves all extremities - Allied Health Allied health notes reviewed: nursing HEART Score - HEART Score Troponin: Troponin T < 0.010 ng/mL (0.00-0.029) 10/26/21 15:58 Results - Labs CBC & Chem 7: 10/26/21 15:58 10/31/21 05:04 Labs: Laboratory Last Values WBC 3.0 K/mm3 (4.5-11.0) L 10/26/21 15:58 RBC 4.41 M/mm3 (3.65-5.03) 10/26/21 15:58 Hgb 13.3 gm/dl (10.1-14.3) 10/26/21 15:58 Hct 39.5 % (30.3-42.9) 10/26/21 15:58 MCV 90 fl (79-97) 10/26/21 15:58 MCH 30 pg (28-32) 10/26/21 15:58 MCHC 34 % (30-34) 10/26/21 15:58 RDW 16.3 % (13.2-15.2) H 10/26/21 15:58 Plt Count 141 K/mm3 (140-440) 10/26/21 15:58 Todd % (Auto) Health And Wellness Coordinator 10/26/21 15:58 Add Manual Diff Complete 10/26/21 15:58 Total Counted 100 10/26/21 15:58 Seg Neuts % (Manual) 59.0 % (40.0-70.0) 10/26/21 15:58 Band Neutrophils % 0 % 10/26/21 15:58 Lymphocytes % (Manual) 27.0 % (13.4-35.0) 10/26/21 15:58 Reactive Lymphs % (Man) 0 % 10/26/21 15:58 Monocytes % (Manual) 14.0 % (0.0-7.3) H 10/26/21 15:58 Eosinophils % (Manual) 0 % (0.0-4.3) 10/26/21 15:58 Basophils % (Manual) 0 % (0.0-1.8) 10/26/21 15:58 Metamyelocytes % 0 % 10/26/21 15:58 Myelocytes % 0 % 10/26/21 15:58 Promyelocytes % 0 % 10/26/21 15:58 Blast Cells % 0 % 10/26/21 15:58 Nucleated RBC % Not Reportable 10/26/21 15:58 Seg Neutrophils # Man 1.8 K/mm3 (1.8-7.7) 10/26/21 15:58 Band Neutrophils # 0.0 K/mm3 10/26/21 15:58 Lymphocytes # (Manual) 0.8 K/mm3 (1.2-5.4) L 10/26/21 15:58 Abs React Lymphs (Man) 0.0 K/mm3 10/26/21 15:58 Monocytes # (Manual) 0.4 K/mm3 (0.0-0.8) 10/26/21 15:58 Eosinophils # (Manual) 0.0 K/mm3 (0.0-0.4) 10/26/21 15:58 Basophils # (Manual) 0.0 K/mm3 (0.0-0.1) 10/26/21 15:58 Metamyelocytes # 0.0 K/mm3 10/26/21 15:58 Myelocytes # 0.0 K/mm3 10/26/21 15:58 Promyelocytes # 0.0 K/mm3 10/26/21 15:58 Blast Cells # 0.0 K/mm3 10/26/21 15:58 WBC Morphology Not Reportable 10/26/21 15:58 Hypersegmented Neuts Not Reportable 10/26/21 15:58 Hyposegmented Neuts Not Reportable 10/26/21 15:58 Hypogranular Neuts Not Reportable 10/26/21 15:58 Smudge Cells Not Reportable 10/26/21 15:58 Toxic Granulation Not Reportable 10/26/21 15:58 Toxic Vacuolation Not Reportable 10/26/21 15:58 Dohle Bodies Not Reportable 10/26/21 15:58 Pelger-Huet Anomaly Not Reportable 10/26/21 15:58 Joseph Rods Not Reportable 10/26/21 15:58 Platelet Estimate Consistent w auto 10/26/21 15:58 Clumped Platelets Not Reportable 10/26/21 15:58 Plt Clumps, EDTA Not Reportable 10/26/21 15:58 Large Platelets Not Reportable 10/26/21 15:58 Giant Platelets Not Reportable 10/26/21 15:58 Platelet Satelliting Not Reportable 10/26/21 15:58 Plt Morphology Comment Not Reportable 10/26/21 15:58 RBC Morphology Not Reportable 10/26/21 15:58 Dimorphic RBCs Not Reportable 10/26/21 15:58 Polychromasia Not Reportable 10/26/21 15:58 Hypochromasia Not Reportable 10/26/21 15:58 Poikilocytosis Not Reportable 10/26/21 15:58 Anisocytosis 1+ 10/26/21 15:58 Microcytosis Not Reportable 10/26/21 15:58 Macrocytosis Not Reportable 10/26/21 15:58 Spherocytes Not Reportable 10/26/21 15:58 Pappenheimer Bodies Not Reportable 10/26/21 15:58 Sickle Cells Not Reportable 10/26/21 15:58 Target Cells Not Reportable 10/26/21 15:58 Tear Drop Cells Not Reportable 10/26/21 15:58 Ovalocytes Not Reportable 10/26/21 15:58 Helmet Cells Not Reportable 10/26/21 15:58 [place] Bodies Not Reportable 10/26/21 15:58 [place] Rings Not Reportable 10/26/21 15:58 Al[place] Rosa Cells Not Reportable 10/26/21 15:58 Bite Cells Not Reportable 10/26/21 15:58 Crenated Cell Not Reportable 10/26/21 15:58 Elliptocytes Not Reportable 10/26/21 15:58 Acanthocytes (Spur) Not Reportable 10/26/21 15:58 Rouleaux Not Reportable 10/26/21 15:58 Hemoglobin C Crystals Not Reportable 10/26/21 15:58 Schistocytes Not Reportable 10/26/21 15:58 Malaria parasites Not Reportable 10/26/21 15:58 Conrado Bodies Not Reportable 10/26/21 15:58 Hem Pathologist Commnt No 10/26/21 15:58 PT 13.9 Sec. (12.2-14.9) 10/26/21 15:58 INR 0.97 (0.87-1.13) 10/26/21 15:58 Sodium 140 mmol/L (137-145) 10/31/21 05:04 Potassium 3.7 mmol/L (3.6-5.0) 10/31/21 05:04 Chloride 102.7 mmol/L (98-107) 10/31/21 05:04 Carbon Dioxide 27 mmol/L (22-30) 10/31/21 05:04 Anion Gap 14 mmol/L 10/31/21 05:04 BUN 6 mg/dL (7-17) L 10/31/21 05:04 Creatinine 0.6 mg/dL (0.6-1.2) 10/31/21 05:04 Estimated GFR > 60 ml/min 10/31/21 05:04 BUN/Creatinine Ratio 10 % 10/31/21 05:04 Glucose 74 mg/dL (65-100) 10/31/21 05:04 POC Glucose 87 mg/dL (70-105) 10/31/21 07:45 Calcium 8.7 mg/dL (8.4-10.2) 10/31/21 05:04 Magnesium 1.70 mg/dL (1.7-2.3) 10/26/21 15:58 Total Bilirubin 0.40 mg/dL (0.1-1.2) 10/31/21 05:04 AST 42 units/L (5-40) H 10/31/21 05:04 ALT 35 units/L (7-56) 10/31/21 05:04 Alkaline Phosphatase 74 units/L (35-129) 10/31/21 05:04 Total Creatine Kinase 153 units/L (30-135) H 10/29/21 06:08 CK-MB (CK-2) 1.1 ng/mL (0.0-4.0) 10/26/21 15:58 CK-MB (CK-2) Rel Index 0.7 (0-4) 10/26/21 15:58 Troponin T < 0.010 ng/mL (0.00-0.029) 10/26/21 15:58 Total Protein 5.9 g/dL (6.3-8.2) L 10/31/21 05:04 Albumin 3.7 g/dL (3.9-5) L 10/31/21 05:04 Albumin/Globulin Ratio 1.7 % 10/31/21 05:04 Urine Opiates Screen Presumptive negative 10/27/21 23:10 Urine Methadone Screen Presumptive negative 10/27/21 23:10 Ur Barbiturates Screen Presumptive negative 10/27/21 23:10 Phenytoin 37.5 ug/mL (10.0-20.0) H 10/31/21 05:04 Ur Phencyclidine Scrn Presumptive negative 10/27/21 23:10 Ur Amphetamines Screen Presumptive negative 10/27/21 23:10 U Benzodiazepines Scrn Presumptive negative 10/27/21 23:10 Urine Cocaine Screen Presumptive negative 10/27/21 23:10 U Marijuana (THC) Screen Presumptive positive 10/27/21 23:10 Drugs of Abuse Note Disclamer 10/27/21 23:10 Coronavirus (PCR) Positive (Negative) A 10/28/21 Unknown Casey/IV: Voiding Method Bedside Commode Active Medications - Current Medications Current Medications: Generic Name Dose Route Start Last Admin Trade Name Freq PRN Reason Stop Dose Admin Acetaminophen 650 mg 10/26/21 20:05 10/26/21 22:40 Acetaminophen 325 Mg Tab PO 650 mg Q4H PRN Administration Pain MILD(1-3)/Fever >100.5/LEVINE Albuterol 2.5 mg 10/26/21 20:05 Albuterol 2.5 Mg/3 Ml Nebu IH Q4HRT PRN Shortness Of Breath Diphenhydramine HCl 25 mg 10/30/21 10:00 Diphenhydramine 25 Mg Cap PO Q8H PRN Itching Hydromorphone HCl 0.5 mg 10/26/21 20:05 Hydromorphone 0.5 Mg/0.5 Ml Inj IV Q23H PRN Pain , Severe (7-10) Levetiracetam 1,000 mg 10/30/21 10:00 10/31/21 09:14 Levetiracetam 500 Mg Tab PO 1,000 mg BID SCARLETT Administration Lorazepam 2 mg 10/28/21 09:54 10/29/21 03:10 Lorazepam 2 Mg/Ml Vial IV 2 mg Q6H PRN Administration Seizures Ondansetron HCl 4 mg 10/26/21 20:05 10/29/21 23:58 Ondansetron 4 Mg/2 Ml Inj IV 4 mg Q8H PRN Administration Nausea And Vomiting Oxycodone/Acetaminophen 1 tab 10/28/21 09:00 10/30/21 16:03 Oxycodone /Acetaminophen 5-325mg Tab PO 1 tab Q8H PRN Administration Pain, Moderate (4-6) Sodium Chloride 10 ml 10/26/21 22:00 10/31/21 09:14 Sodium Chloride 0.9% 10 Ml Flush Syringe IV 10 ml BID SCARLETT Administration Sodium Chloride 10 ml 10/26/21 20:05 10/27/21 23:53 Sodium Chloride 0.9% 10 Ml Flush Syringe IV 10 ml PRN PRN Administration LINE FLUSH
[2021-10-31] MEDS: ONDANSETRON 4 MG/2 ML INJ IV PRN (19:50)
[2021-10-31] MEDS ORDERED: PHENYTOIN IV SCH (22:00)
[2021-10-31] MEDS ORDERED: SODIUM CHLORIDE 0.9% IV SCH (22:00)
[2021-10-31] MEDS ORDERED: PHENYTOIN 100 MG/4 ML ORAL.LIQD PO SCH (22:00)
[2021-10-31] MEDS ORDERED: PHENYTOIN 100 MG CAPSULE.ER PO SCH (22:00)
[2021-11-01] MEDS: ONDANSETRON 4 MG/2 ML INJ IV PRN ×2 (08:50→22:05)
[2021-11-01] MEDS: levETIRAcetam 500 MG TAB PO SCH ×2 (09:39→22:02)
--- NOTE | 2021-11-01 11:44 | Progress Note ---
Assessment and Plan Assessment and plan: #Status epilepticusresolved #Seizure disorderimproving #medication non-compliance #diplopiaimproving #Supratherapeutic Dilantin levelimproving -Keppra and phenytoin loaded in the emergency department -continue phenytoin 300 mg daily and keppra 1000mg BID. Dilantin level: 43.9--> 37.5--> 36.9. Supratherapeutic Dilantin levels could also be worsening patient's cognition and mobility. Plan to reevaluate Dilantin levels with motor mechanics tomorrow. -PRN ativan for breakthrough seizures -Neurology consulted, recommendations: MRI brain with and without contrast unremarkable. -UDS positive for marijuana; patient confirmed use -patient stopped taking Keppra and phenytoin on her own and has had breakthrough seizures which has recently worsened, counseled about importance of taking medications and follow up with Neurology. Physical therapy recommending acute rehab; case management made aware. #Asymptomatic COVID-19 infection -COVID PCR positive -Patient has no symptoms at this time will manage with supportive care -Continue isolation until 11/02 #Acute metabolic encephalopathy-resolved -CT head negative -likely secondary to seizures #Mild protein calorie malnutrition -albumin 3.4 -nutrition consult #Marijuana use -UDS positive -patient counseled about cessation due to seizure disorder- +10 minutes #Falls -patient has fallen twice since admission -CT scan of the head negative x2; MRI brain formal read pending -PT evaluation ordered #Advanced care planning -Disease education data, care plan discussed, diagnoses discussed, prognosis discussed, patient family knowledge understanding and agreement with care plan, +30 minutes. #Discharge planning - Patient is pending return of Dilantin level to baseline and authorization of acute rehab. - Case management has been made aware. Disposition Plan: Pending acute rehab Total Time Spent with Patient (Minutes): 30 minutes History Interval history: No acute events overnight. Hospitalist Physical - Constitutional Vitals: Temp Pulse Resp BP Pulse Ox 98.3 F 75 18 131/74 97 10/31/21 21:27 10/31/21 21:27 10/31/21 21:27 10/31/21 21:27 10/31/21 21:27 General appearance: Present: no acute distress, well-nourished - EENT Eyes: Present: PERRL (Blurred vision), EOM intact ENT: hearing intact, clear oral mucosa, dentition normal - Neck Neck: Present: supple, normal ROM - Respiratory Respiratory effort: normal Respiratory: bilateral: CTA - Cardiovascular Rhythm: regular Heart Sounds: Present: S1 & S2 - Extremities Extremities: no ischemia, pulses intact, pulses symmetrical, No edema, normal temperature, normal color Peripheral Pulses: within normal limits - Abdominal General gastrointestinal: soft, non-tender, non-distended, normal bowel sounds - Integumentary Integumentary: Present: clear, warm, dry - Psychiatric Psychiatric: appropriate mood/affect, intact judgment & insight, memory intact, cooperative - Neurologic Neurologic: CNII-XII intact, moves all extremities - Allied Health Allied health notes reviewed: nursing HEART Score - HEART Score Troponin: Troponin T < 0.010 ng/mL (0.00-0.029) 10/26/21 15:58 Results - Labs CBC & Chem 7: 10/26/21 15:58 10/31/21 05:04 Labs: Laboratory Last Values WBC 3.0 K/mm3 (4.5-11.0) L 10/26/21 15:58 RBC 4.41 M/mm3 (3.65-5.03) 10/26/21 15:58 Hgb 13.3 gm/dl (10.1-14.3) 10/26/21 15:58 Hct 39.5 % (30.3-42.9) 10/26/21 15:58 MCV 90 fl (79-97) 10/26/21 15:58 MCH 30 pg (28-32) 10/26/21 15:58 MCHC 34 % (30-34) 10/26/21 15:58 RDW 16.3 % (13.2-15.2) H 10/26/21 15:58 Plt Count 141 K/mm3 (140-440) 10/26/21 15:58 [place] % (Auto) Material Preparation Worker 10/26/21 15:58 Add Manual Diff Complete 10/26/21 15:58 Total Counted 100 10/26/21 15:58 Seg Neuts % (Manual) 59.0 % (40.0-70.0) 10/26/21 15:58 Band Neutrophils % 0 % 10/26/21 15:58 Lymphocytes % (Manual) 27.0 % (13.4-35.0) 10/26/21 15:58 Reactive Lymphs % (Man) 0 % 10/26/21 15:58 Monocytes % (Manual) 14.0 % (0.0-7.3) H 10/26/21 15:58 Eosinophils % (Manual) 0 % (0.0-4.3) 10/26/21 15:58 Basophils % (Manual) 0 % (0.0-1.8) 10/26/21 15:58 Metamyelocytes % 0 % 10/26/21 15:58 Myelocytes % 0 % 10/26/21 15:58 Promyelocytes % 0 % 10/26/21 15:58 Blast Cells % 0 % 10/26/21 15:58 Nucleated RBC % Not Reportable 10/26/21 15:58 Seg Neutrophils # Man 1.8 K/mm3 (1.8-7.7) 10/26/21 15:58 Band Neutrophils # 0.0 K/mm3 10/26/21 15:58 Lymphocytes # (Manual) 0.8 K/mm3 (1.2-5.4) L 10/26/21 15:58 Abs React Lymphs (Man) 0.0 K/mm3 10/26/21 15:58 Monocytes # (Manual) 0.4 K/mm3 (0.0-0.8) 10/26/21 15:58 Eosinophils # (Manual) 0.0 K/mm3 (0.0-0.4) 10/26/21 15:58 Basophils # (Manual) 0.0 K/mm3 (0.0-0.1) 10/26/21 15:58 Metamyelocytes # 0.0 K/mm3 10/26/21 15:58 Myelocytes # 0.0 K/mm3 10/26/21 15:58 Promyelocytes # 0.0 K/mm3 10/26/21 15:58 Blast Cells # 0.0 K/mm3 10/26/21 15:58 WBC Morphology Not Reportable 10/26/21 15:58 Hypersegmented Neuts Not Reportable 10/26/21 15:58 Hyposegmented Neuts Not Reportable 10/26/21 15:58 Hypogranular Neuts Not Reportable 10/26/21 15:58 Smudge Cells Not Reportable 10/26/21 15:58 Toxic Granulation Not Reportable 10/26/21 15:58 Toxic Vacuolation Not Reportable 10/26/21 15:58 Dohle Bodies Not Reportable 10/26/21 15:58 Pelger-Huet Anomaly Not Reportable 10/26/21 15:58 Joseph Rods Not Reportable 10/26/21 15:58 Platelet Estimate Consistent w auto 10/26/21 15:58 Clumped Platelets Not Reportable 10/26/21 15:58 Plt Clumps, EDTA Not Reportable 10/26/21 15:58 Large Platelets Not Reportable 10/26/21 15:58 Giant Platelets Not Reportable 10/26/21 15:58 Platelet Satelliting Not Reportable 10/26/21 15:58 Plt Morphology Comment Not Reportable 10/26/21 15:58 RBC Morphology Not Reportable 10/26/21 15:58 Dimorphic RBCs Not Reportable 10/26/21 15:58 Polychromasia Not Reportable 10/26/21 15:58 Hypochromasia Not Reportable 10/26/21 15:58 Poikilocytosis Not Reportable 10/26/21 15:58 Anisocytosis 1+ 10/26/21 15:58 Microcytosis Not Reportable 10/26/21 15:58 Macrocytosis Not Reportable 10/26/21 15:58 Spherocytes Not Reportable 10/26/21 15:58 Pappenheimer Bodies Not Reportable 10/26/21 15:58 Sickle Cells Not Reportable 10/26/21 15:58 Target Cells Not Reportable 10/26/21 15:58 Tear Drop Cells Not Reportable 10/26/21 15:58 Ovalocytes Not Reportable 10/26/21 15:58 Helmet Cells Not Reportable 10/26/21 15:58 [place] Bodies Not Reportable 10/26/21 15:58 [place] Rings Not Reportable 10/26/21 15:58 Alma Rosa Cells Not Reportable 10/26/21 15:58 Bite Cells Not Reportable 10/26/21 15:58 Crenated Cell Not Reportable 10/26/21 15:58 Elliptocytes Not Reportable 10/26/21 15:58 Acanthocytes (Spur) Not Reportable 10/26/21 15:58 Rouleaux Not Reportable 10/26/21 15:58 Hemoglobin C Crystals Not Reportable 10/26/21 15:58 Schistocytes Not Reportable 10/26/21 15:58 Malaria parasites Not Reportable 10/26/21 15:58 Conrado Bodies Not Reportable 10/26/21 15:58 Hem Pathologist Commnt No 10/26/21 15:58 PT 13.9 Sec. (12.2-14.9) 10/26/21 15:58 INR 0.97 (0.87-1.13) 10/26/21 15:58 Sodium 140 mmol/L (137-145) 10/31/21 05:04 Potassium 3.7 mmol/L (3.6-5.0) 10/31/21 05:04 Chloride 102.7 mmol/L (98-107) 10/31/21 05:04 Carbon Dioxide 27 mmol/L (22-30) 10/31/21 05:04 Anion Gap 14 mmol/L 10/31/21 05:04 BUN 6 mg/dL (7-17) L 10/31/21 05:04 Creatinine 0.6 mg/dL (0.6-1.2) 10/31/21 05:04 Estimated GFR > 60 ml/min 10/31/21 05:04 BUN/Creatinine Ratio 10 % 10/31/21 05:04 Glucose 74 mg/dL (65-100) 10/31/21 05:04 POC Glucose 94 mg/dL (70-105) 10/31/21 11:56 Calcium 8.7 mg/dL (8.4-10.2) 10/31/21 05:04 Magnesium 1.70 mg/dL (1.7-2.3) 10/26/21 15:58 Total Bilirubin 0.40 mg/dL (0.1-1.2) 10/31/21 05:04 AST 42 units/L (5-40) H 10/31/21 05:04 ALT 35 units/L (7-56) 10/31/21 05:04 Alkaline Phosphatase 74 units/L (35-129) 10/31/21 05:04 Total Creatine Kinase 153 units/L (30-135) H 10/29/21 06:08 CK-MB (CK-2) 1.1 ng/mL (0.0-4.0) 10/26/21 15:58 CK-MB (CK-2) Rel Index 0.7 (0-4) 10/26/21 15:58 Troponin T < 0.010 ng/mL (0.00-0.029) 10/26/21 15:58 Total Protein 5.9 g/dL (6.3-8.2) L 10/31/21 05:04 Albumin 3.7 g/dL (3.9-5) L 10/31/21 05:04 Albumin/Globulin Ratio 1.7 % 10/31/21 05:04 Urine Opiates Screen Presumptive negative 10/27/21 23:10 Urine Methadone Screen Presumptive negative 10/27/21 23:10 Ur Barbiturates Screen Presumptive negative 10/27/21 23:10 Phenytoin 36.9 ug/mL (10.0-20.0) H 11/01/21 04:34 Levetiracetam 12.0 mcg/mL (6.0-46.0) 10/29/21 06:08 Ur Phencyclidine Scrn Presumptive negative 10/27/21 23:10 Ur Amphetamines Screen Presumptive negative 10/27/21 23:10 U Benzodiazepines Scrn Presumptive negative 10/27/21 23:10 Urine Cocaine Screen Presumptive negative 10/27/21 23:10 U Marijuana (THC) Screen Presumptive positive 10/27/21 23:10 Drugs of Abuse Note Disclamer 10/27/21 23:10 Coronavirus (PCR) Positive (Negative) A 10/28/21 Unknown Casey/IV: Voiding Method Bedside Commode Active Medications - Current Medications Current Medications: Generic Name Dose Route Start Last Admin Trade Name Freq PRN Reason Stop Dose Admin Acetaminophen 650 mg 10/26/21 20:05 10/26/21 22:40 Acetaminophen 325 Mg Tab PO 650 mg Q4H PRN Administration Pain MILD(1-3)/Fever >100.5/LEVINE Albuterol 2.5 mg 10/26/21 20:05 Albuterol 2.5 Mg/3 Ml Nebu IH Q4HRT PRN Shortness Of Breath Diphenhydramine HCl 25 mg 10/30/21 10:00 Diphenhydramine 25 Mg Cap PO Q8H PRN Itching Hydromorphone HCl 0.5 mg 10/26/21 20:05 Hydromorphone 0.5 Mg/0.5 Ml Inj IV Q23H PRN Pain , Severe (7-10) Levetiracetam 1,000 mg 10/30/21 10:00 11/01/21 09:39 Levetiracetam 500 Mg Tab PO 1,000 mg BID SCARLETT Administration Lorazepam 2 mg 10/28/21 09:54 10/29/21 03:10 Lorazepam 2 Mg/Ml Vial IV 2 mg Q6H PRN Administration Seizures Ondansetron HCl 4 mg 10/26/21 20:05 11/01/21 08:50 Ondansetron 4 Mg/2 Ml Inj IV 4 mg Q8H PRN Administration Nausea And Vomiting Oxycodone/Acetaminophen 1 tab 10/28/21 09:00 10/30/21 16:03 Oxycodone /Acetaminophen 5-325mg Tab PO 1 tab Q8H PRN Administration Pain, Moderate (4-6) Sodium Chloride 10 ml 10/26/21 22:00 11/01/21 09:38 Sodium Chloride 0.9% 10 Ml Flush Syringe IV 10 ml BID SCARLETT Administration Sodium Chloride 10 ml 10/26/21 20:05 10/27/21 23:53 Sodium Chloride 0.9% 10 Ml Flush Syringe IV 10 ml PRN PRN Administration LINE FLUSH
[2021-11-01] MEDS: ACETAMINOPHEN 325 MG TAB PO PRN (22:05)
[2021-11-02] MEDS: ONDANSETRON 4 MG/2 ML INJ IV PRN ×2 (08:32→20:08)
[2021-11-02] MEDS: levETIRAcetam 500 MG TAB PO SCH ×2 (09:28→21:11)
[2021-11-02] MEDS: oxyCODONE /ACETAMINOPHEN 5-325MG TAB PO PRN ×2 (14:11→22:34)
--- NOTE | 2021-11-02 17:38 | Progress Note ---
Assessment and Plan Assessment and plan: #Status epilepticusresolved #Seizure disorderimproving #medication non-compliance #diplopiaimproving #Supratherapeutic Dilantin levelimproving -Keppra and phenytoin loaded in the emergency department -continue phenytoin 300 mg daily and keppra 1000mg BID. Dilantin level: 43.9--> 37.5--> 36.9-->24.8. Supratherapeutic Dilantin levels could also be worsening patient's cognition and mobility. -PRN ativan for breakthrough seizures -Neurology consulted, recommendations: MRI brain with and without contrast unremarkable. -UDS positive for marijuana; patient confirmed use -patient stopped taking Keppra and phenytoin on her own and has had breakthrough seizures which has recently worsened, counseled about importance of taking medications and follow up with Neurology. Physical therapy recommending acute rehab; case management made aware. #Asymptomatic COVID-19 infection -COVID PCR positive -Patient has no symptoms at this time will manage with supportive care -Continue isolation until 11/02 #Acute metabolic encephalopathy-resolved -CT head negative -likely secondary to seizures #Mild protein calorie malnutrition -albumin 3.4 -nutrition consult #Marijuana use -UDS positive -patient counseled about cessation due to seizure disorder- +10 minutes #Falls -patient has fallen twice since admission -CT scan of the head negative x2; MRI brain formal read pending -PT evaluation ordered #Advanced care planning -Disease education data, care plan discussed, diagnoses discussed, prognosis discussed, patient family knowledge understanding and agreement with care plan, +30 minutes. #Discharge planning - Patient is pending return of Dilantin level to baseline and authorization of acute rehab. - Case management has been made aware. Disposition Plan: Pending rehab authorization Total Time Spent with Patient (Minutes): 45 minutes History Interval history: No acute events overnight. Hospitalist Physical - Constitutional Vitals: Temp Pulse Resp BP Pulse Ox 98.3 F 90 16 144/97 99 11/02/21 11:31 11/02/21 11:31 11/02/21 11:31 11/02/21 11:31 11/02/21 11:31 General appearance: Present: no acute distress, well-nourished - EENT Eyes: Present: PERRL, EOM intact ENT: hearing intact, clear oral mucosa, dentition normal - Neck Neck: Present: supple, normal ROM - Respiratory Respiratory effort: normal Respiratory: bilateral: CTA - Cardiovascular Rhythm: regular Heart Sounds: Present: S1 & S2 - Extremities Extremities: no ischemia, pulses intact, pulses symmetrical, No edema, normal temperature, normal color Peripheral Pulses: within normal limits - Abdominal General gastrointestinal: soft, non-tender, non-distended, normal bowel sounds - Integumentary Integumentary: Present: clear, warm, dry - Psychiatric Psychiatric: appropriate mood/affect, intact judgment & insight, memory intact, cooperative - Neurologic Neurologic: CNII-XII intact, moves all extremities - Allied Health Allied health notes reviewed: nursing HEART Score - HEART Score Troponin: Troponin T < 0.010 ng/mL (0.00-0.029) 10/26/21 15:58 Results - Labs CBC & Chem 7: 10/26/21 15:58 10/31/21 05:04 Labs: Laboratory Last Values WBC 3.0 K/mm3 (4.5-11.0) L 10/26/21 15:58 RBC 4.41 M/mm3 (3.65-5.03) 10/26/21 15:58 Hgb 13.3 gm/dl (10.1-14.3) 10/26/21 15:58 Hct 39.5 % (30.3-42.9) 10/26/21 15:58 MCV 90 fl (79-97) 10/26/21 15:58 MCH 30 pg (28-32) 10/26/21 15:58 MCHC 34 % (30-34) 10/26/21 15:58 RDW 16.3 % (13.2-15.2) H 10/26/21 15:58 Plt Count 141 K/mm3 (140-440) 10/26/21 15:58 [place] % (Auto) Trim Crew Supervisor 10/26/21 15:58 Add Manual Diff Complete 10/26/21 15:58 Total Counted 100 10/26/21 15:58 Seg Neuts % (Manual) 59.0 % (40.0-70.0) 10/26/21 15:58 Band Neutrophils % 0 % 10/26/21 15:58 Lymphocytes % (Manual) 27.0 % (13.4-35.0) 10/26/21 15:58 Reactive Lymphs % (Man) 0 % 10/26/21 15:58 Monocytes % (Manual) 14.0 % (0.0-7.3) H 10/26/21 15:58 Eosinophils % (Manual) 0 % (0.0-4.3) 10/26/21 15:58 Basophils % (Manual) 0 % (0.0-1.8) 10/26/21 15:58 Metamyelocytes % 0 % 10/26/21 15:58 Myelocytes % 0 % 10/26/21 15:58 Promyelocytes % 0 % 10/26/21 15:58 Blast Cells % 0 % 10/26/21 15:58 Nucleated RBC % Not Reportable 10/26/21 15:58 Seg Neutrophils # Man 1.8 K/mm3 (1.8-7.7) 10/26/21 15:58 Band Neutrophils # 0.0 K/mm3 10/26/21 15:58 Lymphocytes # (Manual) 0.8 K/mm3 (1.2-5.4) L 10/26/21 15:58 Abs React Lymphs (Man) 0.0 K/mm3 10/26/21 15:58 Monocytes # (Manual) 0.4 K/mm3 (0.0-0.8) 10/26/21 15:58 Eosinophils # (Manual) 0.0 K/mm3 (0.0-0.4) 10/26/21 15:58 Basophils # (Manual) 0.0 K/mm3 (0.0-0.1) 10/26/21 15:58 Metamyelocytes # 0.0 K/mm3 10/26/21 15:58 Myelocytes # 0.0 K/mm3 10/26/21 15:58 Promyelocytes # 0.0 K/mm3 10/26/21 15:58 Blast Cells # 0.0 K/mm3 10/26/21 15:58 WBC Morphology Not Reportable 10/26/21 15:58 Hypersegmented Neuts Not Reportable 10/26/21 15:58 Hyposegmented Neuts Not Reportable 10/26/21 15:58 Hypogranular Neuts Not Reportable 10/26/21 15:58 Smudge Cells Not Reportable 10/26/21 15:58 Toxic Granulation Not Reportable 10/26/21 15:58 Toxic Vacuolation Not Reportable 10/26/21 15:58 Dohle Bodies Not Reportable 10/26/21 15:58 Pelger-Huet Anomaly Not Reportable 10/26/21 15:58 Joseph Rods Not Reportable 10/26/21 15:58 Platelet Estimate Consistent w auto 10/26/21 15:58 Clumped Platelets Not Reportable 10/26/21 15:58 Plt Clumps, EDTA Not Reportable 10/26/21 15:58 Large Platelets Not Reportable 10/26/21 15:58 Giant Platelets Not Reportable 10/26/21 15:58 Platelet Satelliting Not Reportable 10/26/21 15:58 Plt Morphology Comment Not Reportable 10/26/21 15:58 RBC Morphology Not Reportable 10/26/21 15:58 Dimorphic RBCs Not Reportable 10/26/21 15:58 Polychromasia Not Reportable 10/26/21 15:58 Hypochromasia Not Reportable 10/26/21 15:58 Poikilocytosis Not Reportable 10/26/21 15:58 Anisocytosis 1+ 10/26/21 15:58 Microcytosis Not Reportable 10/26/21 15:58 Macrocytosis Not Reportable 10/26/21 15:58 Spherocytes Not Reportable 10/26/21 15:58 Pappenheimer Bodies Not Reportable 10/26/21 15:58 Sickle Cells Not Reportable 10/26/21 15:58 Target Cells Not Reportable 10/26/21 15:58 Tear Drop Cells Not Reportable 10/26/21 15:58 Ovalocytes Not Reportable 10/26/21 15:58 Helmet Cells Not Reportable 10/26/21 15:58 Jansen-Lipan Bodies Not Reportable 10/26/21 15:58 [place] Rings Not Reportable 10/26/21 15:58 Alma Rosa Cells Not Reportable 10/26/21 15:58 Bite Cells Not Reportable 10/26/21 15:58 Crenated Cell Not Reportable 10/26/21 15:58 Elliptocytes Not Reportable 10/26/21 15:58 Acanthocytes (Spur) Not Reportable 10/26/21 15:58 Rouleaux Not Reportable 10/26/21 15:58 Hemoglobin C Crystals Not Reportable 10/26/21 15:58 Schistocytes Not Reportable 10/26/21 15:58 Malaria parasites Not Reportable 10/26/21 15:58 Conrado Bodies Not Reportable 10/26/21 15:58 Hem Pathologist Commnt No 10/26/21 15:58 PT 13.9 Sec. (12.2-14.9) 10/26/21 15:58 INR 0.97 (0.87-1.13) 10/26/21 15:58 Sodium 140 mmol/L (137-145) 10/31/21 05:04 Potassium 3.7 mmol/L (3.6-5.0) 10/31/21 05:04 Chloride 102.7 mmol/L (98-107) 10/31/21 05:04 Carbon Dioxide 27 mmol/L (22-30) 10/31/21 05:04 Anion Gap 14 mmol/L 10/31/21 05:04 BUN 6 mg/dL (7-17) L 10/31/21 05:04 Creatinine 0.6 mg/dL (0.6-1.2) 10/31/21 05:04 Estimated GFR > 60 ml/min 10/31/21 05:04 BUN/Creatinine Ratio 10 % 10/31/21 05:04 Glucose 74 mg/dL (65-100) 10/31/21 05:04 POC Glucose 94 mg/dL (70-105) 10/31/21 11:56 Calcium 8.7 mg/dL (8.4-10.2) 10/31/21 05:04 Magnesium 1.70 mg/dL (1.7-2.3) 10/26/21 15:58 Total Bilirubin 0.40 mg/dL (0.1-1.2) 10/31/21 05:04 AST 42 units/L (5-40) H 10/31/21 05:04 ALT 35 units/L (7-56) 10/31/21 05:04 Alkaline Phosphatase 74 units/L (35-129) 10/31/21 05:04 Total Creatine Kinase 153 units/L (30-135) H 10/29/21 06:08 CK-MB (CK-2) 1.1 ng/mL (0.0-4.0) 10/26/21 15:58 CK-MB (CK-2) Rel Index 0.7 (0-4) 10/26/21 15:58 Troponin T < 0.010 ng/mL (0.00-0.029) 10/26/21 15:58 Total Protein 5.9 g/dL (6.3-8.2) L 10/31/21 05:04 Albumin 3.7 g/dL (3.9-5) L 10/31/21 05:04 Albumin/Globulin Ratio 1.7 % 10/31/21 05:04 Urine Opiates Screen Presumptive negative 10/27/21 23:10 Urine Methadone Screen Presumptive negative 10/27/21 23:10 Ur Barbiturates Screen Presumptive negative 10/27/21 23:10 Phenytoin 24.8 ug/mL (10.0-20.0) H 11/02/21 06:29 Levetiracetam 12.0 mcg/mL (6.0-46.0) 10/29/21 06:08 Ur Phencyclidine Scrn Presumptive negative 10/27/21 23:10 Ur Amphetamines Screen Presumptive negative 10/27/21 23:10 U Benzodiazepines Scrn Presumptive negative 10/27/21 23:10 Urine Cocaine Screen Presumptive negative 10/27/21 23:10 U Marijuana (THC) Screen Presumptive positive 10/27/21 23:10 Drugs of Abuse Note Disclamer 10/27/21 23:10 Coronavirus (PCR) Positive (Negative) A 10/28/21 Unknown Casey/IV: Voiding Method Bedside Commode Active Medications - Current Medications Current Medications: Generic Name Dose Route Start Last Admin Trade Name Freq PRN Reason Stop Dose Admin Acetaminophen 650 mg 10/26/21 20:05 11/01/21 22:05 Acetaminophen 325 Mg Tab PO 650 mg Q4H PRN Administration Pain MILD(1-3)/Fever >100.5/LEVINE Albuterol 2.5 mg 10/26/21 20:05 Albuterol 2.5 Mg/3 Ml Nebu IH Q4HRT PRN Shortness Of Breath Diphenhydramine HCl 25 mg 10/30/21 10:00 Diphenhydramine 25 Mg Cap PO Q8H PRN Itching Hydromorphone HCl 0.5 mg 10/26/21 20:05 Hydromorphone 0.5 Mg/0.5 Ml Inj IV Q23H PRN Pain , Severe (7-10) Levetiracetam 1,000 mg 10/30/21 10:00 11/02/21 09:28 Levetiracetam 500 Mg Tab PO 1,000 mg BID SCARLETT Administration Lorazepam 2 mg 10/28/21 09:54 10/29/21 03:10 Lorazepam 2 Mg/Ml Vial IV 2 mg Q6H PRN Administration Seizures Ondansetron HCl 4 mg 10/26/21 20:05 11/02/21 08:32 Ondansetron 4 Mg/2 Ml Inj IV 4 mg Q8H PRN Administration Nausea And Vomiting Oxycodone/Acetaminophen 1 tab 10/28/21 09:00 11/02/21 14:11 Oxycodone /Acetaminophen 5-325mg Tab PO 1 tab Q8H PRN Administration Pain, Moderate (4-6) Sodium Chloride 10 ml 10/26/21 22:00 11/02/21 09:28 Sodium Chloride 0.9% 10 Ml Flush Syringe IV 10 ml BID SCARLETT Administration Sodium Chloride 10 ml 10/26/21 20:05 10/27/21 23:53 Sodium Chloride 0.9% 10 Ml Flush Syringe IV 10 ml PRN PRN Administration LINE FLUSH Nutrition/Malnutrition Assess - Dietary Evaluation Nutrition/Malnutrition Findings: Nutrition Notes Start: 11/02/21 16:09 Freq: Status: Active Protocol: Document 11/02/21 16:09 CM (Rec: 11/02/21 16:18 CM [id number]) Co-Sign 11/02/21 16:09 WW Nutrition Notes Need for Assessment generated from: LOS Initial or Follow up Assessment Other Pertinent Diagnosis Seizure Current Diet Regular Diet Labs/Tests 11/02: BUN 6 Pertinent Medications 11/02: Reviewed Height 5 ft 11 in Weight 61.6 kg Usual Body Weight 62.7 kg [place] Body Weight (kg) 70.45 BMI 18.9 Intake Prior to Admission Good Weight change and time frame 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 Pt on regular diet with 0-25% consumed 10/28-11/01. 100% breakfast/lunch 11/02. Pt reported nausea is persistant and she is eating less, but forces herself to eat - decreased appetite x 3 days. 10/27-11/01 <50% of meals consumed - indicative of mild malnutrition at this time. Nutrition-focused physical unable to be performed - pt on COVID19 isolation. 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 No Is Patient Ambulatory and/or Out of Bed Yes REE-([facility]-ambulatory/OOB) [ [id number] [id number]] Calculation Used for Recommendations [facility] Additional Notes Protein: 1.2-1.5g ABW PRO q day; 74-92g PRO q day Fluids: 1mL/kcal or per MD Nutrition Intervention Change Diet Order: Continue regular diet Add Supplement/Snack (indicate name/kcal Ensure Enlive BID /protein ) Provides kCal: 700 Provides Protein (gm) 40 Goal #1 Pt to consume >75% of estimated energy/protein needs through current diet order / nutrition supplementation Goal #2 Pt to maintain current wt status within 2.5% throughout LOS Follow-Up By: 11/09/21 Additional Comments Monitor %PO intake, wt status, and GI symptoms.
[2021-11-03] MEDS: levETIRAcetam 500 MG TAB PO SCH ×2 (10:36→21:02)
--- NOTE | 2021-11-03 19:41 | Progress Note ---
Assessment and Plan Assessment and plan: #Status epilepticusresolved #Seizure disorderimproving #medication non-compliance #diplopiaimproving #Supratherapeutic Dilantin levelimproving -Keppra and phenytoin loaded in the emergency department -continue phenytoin 300 mg daily and keppra 1000mg BID. Dilantin level: 43.9--> 37.5--> 36.9-->24.8. Supratherapeutic Dilantin levels could also be worsening patient's cognition and mobility. -PRN ativan for breakthrough seizures -Neurology consulted, recommendations: MRI brain with and without contrast unremarkable. -UDS positive for marijuana; patient confirmed use -patient stopped taking Keppra and phenytoin on her own and has had breakthrough seizures which has recently worsened, counseled about importance of taking medications and follow up with Neurology. Physical therapy recommending acute rehab; case management made aware. #Asymptomatic COVID-19 infection -COVID PCR positive -Patient has no symptoms at this time will manage with supportive care -Discontinued isolation (status post 5 days per [facility]) #Acute metabolic encephalopathy-resolved -CT head negative -likely secondary to seizures #Mild protein calorie malnutrition -albumin 3.4 -nutrition consult #Marijuana use -UDS positive -patient counseled about cessation due to seizure disorder- +10 minutes #Falls -patient has fallen twice since admission -CT scan of the head negative x2; MRI brain formal read pending -PT evaluation ordered #Advanced care planning -Disease education data, care plan discussed, diagnoses discussed, prognosis discussed, patient family knowledge understanding and agreement with care plan, +30 minutes. #Discharge planning - Patient is pending return of Dilantin level to baseline and authorization of acute rehab. - Case management has been made aware. Disposition Plan: Pending acute rehab authorization Total Time Spent with Patient (Minutes): 30 minutes History Interval history: No acute events overnight. Hospitalist Physical - Constitutional Vitals: Temp Pulse Resp BP Pulse Ox 98.6 F 79 18 129/82 98 11/03/21 16:00 11/03/21 16:00 11/03/21 16:00 11/03/21 16:00 11/03/21 16:00 General appearance: Present: no acute distress, well-nourished - EENT Eyes: Present: PERRL, EOM intact ENT: hearing intact, clear oral mucosa, dentition normal - Neck Neck: Present: supple, normal ROM - Respiratory Respiratory effort: normal Respiratory: bilateral: CTA - Cardiovascular Rhythm: regular Heart Sounds: Present: S1 & S2 - Extremities Extremities: no ischemia, pulses intact, pulses symmetrical, No edema, normal temperature, normal color Peripheral Pulses: within normal limits - Abdominal General gastrointestinal: soft, non-tender, non-distended, normal bowel sounds - Integumentary Integumentary: Present: clear, warm, dry - Psychiatric Psychiatric: appropriate mood/affect, intact judgment & insight, cooperative, other (Decreased short-term memory) - Neurologic Neurologic: CNII-XII intact, moves all extremities (Weakness of bilateral lower extremities) - Allied Health Allied health notes reviewed: nursing, social work, case management HEART Score - HEART Score Troponin: Troponin T < 0.010 ng/mL (0.00-0.029) 10/26/21 15:58 Results - Labs CBC & Chem 7: 10/26/21 15:58 10/31/21 05:04 Labs: Laboratory Last Values WBC 3.0 K/mm3 (4.5-11.0) L 10/26/21 15:58 RBC 4.41 M/mm3 (3.65-5.03) 10/26/21 15:58 Hgb 13.3 gm/dl (10.1-14.3) 10/26/21 15:58 Hct 39.5 % (30.3-42.9) 10/26/21 15:58 MCV 90 fl (79-97) 10/26/21 15:58 MCH 30 pg (28-32) 10/26/21 15:58 MCHC 34 % (30-34) 10/26/21 15:58 RDW 16.3 % (13.2-15.2) H 10/26/21 15:58 Plt Count 141 K/mm3 (140-440) 10/26/21 15:58 [place] % (Auto) Map Editor 10/26/21 15:58 Add Manual Diff Complete 10/26/21 15:58 Total Counted 100 10/26/21 15:58 Seg Neuts % (Manual) 59.0 % (40.0-70.0) 10/26/21 15:58 Band Neutrophils % 0 % 10/26/21 15:58 Lymphocytes % (Manual) 27.0 % (13.4-35.0) 10/26/21 15:58 Reactive Lymphs % (Man) 0 % 10/26/21 15:58 Monocytes % (Manual) 14.0 % (0.0-7.3) H 10/26/21 15:58 Eosinophils % (Manual) 0 % (0.0-4.3) 10/26/21 15:58 Basophils % (Manual) 0 % (0.0-1.8) 10/26/21 15:58 Metamyelocytes % 0 % 10/26/21 15:58 Myelocytes % 0 % 10/26/21 15:58 Promyelocytes % 0 % 10/26/21 15:58 Blast Cells % 0 % 10/26/21 15:58 Nucleated RBC % Not Reportable 10/26/21 15:58 Seg Neutrophils # Man 1.8 K/mm3 (1.8-7.7) 10/26/21 15:58 Band Neutrophils # 0.0 K/mm3 10/26/21 15:58 Lymphocytes # (Manual) 0.8 K/mm3 (1.2-5.4) L 10/26/21 15:58 Abs React Lymphs (Man) 0.0 K/mm3 10/26/21 15:58 Monocytes # (Manual) 0.4 K/mm3 (0.0-0.8) 10/26/21 15:58 Eosinophils # (Manual) 0.0 K/mm3 (0.0-0.4) 10/26/21 15:58 Basophils # (Manual) 0.0 K/mm3 (0.0-0.1) 10/26/21 15:58 Metamyelocytes # 0.0 K/mm3 10/26/21 15:58 Myelocytes # 0.0 K/mm3 10/26/21 15:58 Promyelocytes # 0.0 K/mm3 10/26/21 15:58 Blast Cells # 0.0 K/mm3 10/26/21 15:58 WBC Morphology Not Reportable 10/26/21 15:58 Hypersegmented Neuts Not Reportable 10/26/21 15:58 Hyposegmented Neuts Not Reportable 10/26/21 15:58 Hypogranular Neuts Not Reportable 10/26/21 15:58 Smudge Cells Not Reportable 10/26/21 15:58 Toxic Granulation Not Reportable 10/26/21 15:58 Toxic Vacuolation Not Reportable 10/26/21 15:58 Dohle Bodies Not Reportable 10/26/21 15:58 Pelger-Huet Anomaly Not Reportable 10/26/21 15:58 Joseph Rods Not Reportable 10/26/21 15:58 Platelet Estimate Consistent w auto 10/26/21 15:58 Clumped Platelets Not Reportable 10/26/21 15:58 Plt Clumps, EDTA Not Reportable 10/26/21 15:58 Large Platelets Not Reportable 10/26/21 15:58 Giant Platelets Not Reportable 10/26/21 15:58 Platelet Satelliting Not Reportable 10/26/21 15:58 Plt Morphology Comment Not Reportable 10/26/21 15:58 RBC Morphology Not Reportable 10/26/21 15:58 Dimorphic RBCs Not Reportable 10/26/21 15:58 Polychromasia Not Reportable 10/26/21 15:58 Hypochromasia Not Reportable 10/26/21 15:58 Poikilocytosis Not Reportable 10/26/21 15:58 Anisocytosis 1+ 10/26/21 15:58 Microcytosis Not Reportable 10/26/21 15:58 Macrocytosis Not Reportable 10/26/21 15:58 Spherocytes Not Reportable 10/26/21 15:58 Pappenheimer Bodies Not Reportable 10/26/21 15:58 Sickle Cells Not Reportable 10/26/21 15:58 Target Cells Not Reportable 10/26/21 15:58 Tear Drop Cells Not Reportable 10/26/21 15:58 Ovalocytes Not Reportable 10/26/21 15:58 Helmet Cells Not Reportable 10/26/21 15:58 J[place] Bodies Not Reportable 10/26/21 15:58 [place] Rings Not Reportable 10/26/21 15:58 [place] Cells Not Reportable 10/26/21 15:58 Bite Cells Not Reportable 10/26/21 15:58 Crenated Cell Not Reportable 10/26/21 15:58 Elliptocytes Not Reportable 10/26/21 15:58 Acanthocytes (Spur) Not Reportable 10/26/21 15:58 Rouleaux Not Reportable 10/26/21 15:58 Hemoglobin C Crystals Not Reportable 10/26/21 15:58 Schistocytes Not Reportable 10/26/21 15:58 Malaria parasites Not Reportable 10/26/21 15:58 Conrado Bodies Not Reportable 10/26/21 15:58 Hem Pathologist Commnt No 10/26/21 15:58 PT 13.9 Sec. (12.2-14.9) 10/26/21 15:58 INR 0.97 (0.87-1.13) 10/26/21 15:58 Sodium 140 mmol/L (137-145) 10/31/21 05:04 Potassium 3.7 mmol/L (3.6-5.0) 10/31/21 05:04 Chloride 102.7 mmol/L (98-107) 10/31/21 05:04 Carbon Dioxide 27 mmol/L (22-30) 10/31/21 05:04 Anion Gap 14 mmol/L 10/31/21 05:04 BUN 6 mg/dL (7-17) L 10/31/21 05:04 Creatinine 0.6 mg/dL (0.6-1.2) 10/31/21 05:04 Estimated GFR > 60 ml/min 10/31/21 05:04 BUN/Creatinine Ratio 10 % 10/31/21 05:04 Glucose 74 mg/dL (65-100) 10/31/21 05:04 POC Glucose 94 mg/dL (70-105) 10/31/21 11:56 Calcium 8.7 mg/dL (8.4-10.2) 10/31/21 05:04 Magnesium 1.70 mg/dL (1.7-2.3) 10/26/21 15:58 Total Bilirubin 0.40 mg/dL (0.1-1.2) 10/31/21 05:04 AST 42 units/L (5-40) H 10/31/21 05:04 ALT 35 units/L (7-56) 10/31/21 05:04 Alkaline Phosphatase 74 units/L (35-129) 10/31/21 05:04 Total Creatine Kinase 153 units/L (30-135) H 10/29/21 06:08 CK-MB (CK-2) 1.1 ng/mL (0.0-4.0) 10/26/21 15:58 CK-MB (CK-2) Rel Index 0.7 (0-4) 10/26/21 15:58 Troponin T < 0.010 ng/mL (0.00-0.029) 10/26/21 15:58 Total Protein 5.9 g/dL (6.3-8.2) L 10/31/21 05:04 Albumin 3.7 g/dL (3.9-5) L 10/31/21 05:04 Albumin/Globulin Ratio 1.7 % 10/31/21 05:04 Urine Opiates Screen Presumptive negative 10/27/21 23:10 Urine Methadone Screen Presumptive negative 10/27/21 23:10 Ur Barbiturates Screen Presumptive negative 10/27/21 23:10 Phenytoin 19.1 ug/mL (10.0-20.0) 11/03/21 09:16 Levetiracetam 12.0 mcg/mL (6.0-46.0) 10/29/21 06:08 Ur Phencyclidine Scrn Presumptive negative 10/27/21 23:10 Ur Amphetamines Screen Presumptive negative 10/27/21 23:10 U Benzodiazepines Scrn Presumptive negative 10/27/21 23:10 Urine Cocaine Screen Presumptive negative 10/27/21 23:10 U Marijuana (THC) Screen Presumptive positive 10/27/21 23:10 Drugs of Abuse Note Disclamer 10/27/21 23:10 Coronavirus (PCR) Positive (Negative) A 10/28/21 Unknown Casey/IV: Voiding Method Bedside Commode Active Medications - Current Medications Current Medications: Generic Name Dose Route Start Last Admin Trade Name Freq PRN Reason Stop Dose Admin Acetaminophen 650 mg 10/26/21 20:05 11/01/21 22:05 Acetaminophen 325 Mg Tab PO 650 mg Q4H PRN Administration Pain MILD(1-3)/Fever >100.5/LEVINE Albuterol 2.5 mg 10/26/21 20:05 Albuterol 2.5 Mg/3 Ml Nebu IH Q4HRT PRN Shortness Of Breath Diphenhydramine HCl 25 mg 10/30/21 10:00 Diphenhydramine 25 Mg Cap PO Q8H PRN Itching Hydromorphone HCl 0.5 mg 10/26/21 20:05 Hydromorphone 0.5 Mg/0.5 Ml Inj IV Q23H PRN Pain , Severe (7-10) Levetiracetam 1,000 mg 10/30/21 10:00 11/03/21 10:36 Levetiracetam 500 Mg Tab PO 1,000 mg BID SCARLETT Administration Lorazepam 2 mg 10/28/21 09:54 10/29/21 03:10 Lorazepam 2 Mg/Ml Vial IV 2 mg Q6H PRN Administration Seizures Ondansetron HCl 4 mg 10/26/21 20:05 11/02/21 20:08 Ondansetron 4 Mg/2 Ml Inj IV 4 mg Q8H PRN Administration Nausea And Vomiting Oxycodone/Acetaminophen 1 tab 10/28/21 09:00 11/02/21 22:34 Oxycodone /Acetaminophen 5-325mg Tab PO 1 tab Q8H PRN Administration Pain, Moderate (4-6) Sodium Chloride 10 ml 10/26/21 22:00 11/03/21 10:30 Sodium Chloride 0.9% 10 Ml Flush Syringe IV 10 ml BID SCARLETT Administration Sodium Chloride 10 ml 10/26/21 20:05 10/27/21 23:53 Sodium Chloride 0.9% 10 Ml Flush Syringe IV 10 ml PRN PRN Administration LINE FLUSH Nutrition/Malnutrition Assess - Dietary Evaluation Nutrition/Malnutrition Findings: Nutrition Notes Start: 11/02/21 16:09 Freq: Status: Active Protocol: Document 11/02/21 16:09 CM (Rec: 11/02/21 16:18 CM [id number]) Co-Sign 11/02/21 16:09 WW Nutrition Notes Need for Assessment generated from: LOS Initial or Follow up Assessment Other Pertinent Diagnosis Seizure Current Diet Regular Diet Labs/Tests 11/02: BUN 6 Pertinent Medications 11/02: Reviewed Height 5 ft 11 in Weight 61.6 kg Usual Body Weight 62.7 kg Start Body Weight (kg) 70.45 BMI 18.9 Intake Prior to Admission Good Weight change and time frame 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 Pt on regular diet with 0-25% consumed 10/28-11/01. 100% breakfast/lunch 11/02. Pt reported nausea is persistant and she is eating less, but forces herself to eat - decreased appetite x 3 days. 10/27-11/01 <50% of meals consumed - indicative of mild malnutrition at this time. Nutrition-focused physical unable to be performed - pt on COVID19 isolation. Percent of energy/protein needs met: Regular Diet provides 2289kcal / 89g PRO q day (130%/100%) Burn Absent Trauma Absent GI Symptoms Nausea Food Allergy No Skin Integrity/Comment WNL Current % PO Good (75-100%) Minimum of two criteria No Energy Intake (severe) < or equal to 50% Estimated Energy Requirement > or equal to 5 days Fluid Accumulation N/A Reduced Cytotechnologist/Histotechnologist Strength N/A (non-severe) Protein-Calorie Malnutrition N\A #1 Nutrition Diagnosis Malnutrition Etiology COVID-19 infection/Nausea As Evidenced by Signs and Symptoms <50% of estimated energy/ protein needs consumed 10/27- (6 days) Is patient on ventilator? No Is Patient Ambulatory and/or Out of Bed Yes [facility] [ [id number] [id number]] Calculation Used for Recommendations [facility] Additional Notes Protein: 1.2-1.5g ABW PRO q day; 74-92g PRO q day Fluids: 1mL/kcal or per MD Nutrition Intervention Change Diet Order: Continue regular diet Add Supplement/Snack (indicate name/kcal Ensure Enlive BID /protein ) Provides kCal: 700 Provides Protein (gm) 40 Goal #1 Pt to consume >75% of estimated energy/protein needs through current diet order / nutrition supplementation Goal #2 Pt to maintain current wt status within 2.5% throughout LOS Follow-Up By: 11/09/21 Additional Comments Monitor %PO intake, wt status, and GI symptoms.
[2021-11-03] MEDS: ONDANSETRON 4 MG/2 ML INJ IV PRN (20:56)
[2021-11-04] MEDS: levETIRAcetam 500 MG TAB PO SCH (09:23)
--- NOTE | 2021-11-04 12:32 | Discharge Summary ---
Providers - Providers Date of Admission: 10/26/21 20:05 Date of discharge: 11/04/21 Attending physician: DARYA POPE MD 10/27/21 10:55 Consult to Physician [CONS] Routine Comment: Consulting Provider: JULY HUGO Physician Instructions: Reason For Exam: SEIZURE DISORDER 10/28/21 08:30 Telemedicine [[facility] Consult Order] [CONS] ONCE Comment: Consulting Provider: Reason For Exam: reccurent seizures 10/30/21 14:09 Physical Therapy Evaluation and Treat [CONS] Routine Comment: Reason For Exam: FALLS 10/31/21 15:43 Occupational Therapy Evaluate and Treat [CONS] Stat Comment: Eval and Treat Reason For Exam: Occupational Therapy Primary care physician: THEA CRANE Hospitalization Reason for admission: Status epilepticus, acute metabolic encephalopathy Condition: Stable Pertinent studies: Reviewed. Procedures: None. Hospital course: The patient is a 46 YO Female with Seizure disorder not currently taking antiepileptic therapy presents to ED for evaluation. Patient is alert and has normal evaluations and provide history. Patient history taken from ED staff as well as the patient's family who present since of the bedside during exam and interview. The patient presented to the emergency department to last picker another family member when she was found by staff undergoing a generalized tonic-clonic seizure. Patient seen and evaluated in the emergency department. All lab and imaging studies reviewed. Patient was observed having multiple seizures with entire 5-minute timeframe which is consistent with status epilepticus complicated by encephalopathy. Patient admitted to medical floor due to increased risk of worsening symptoms and for medical stabilization. Patient loaded with Keppra in the emergency department. Despite being loaded with Keppra, the patient still experienced a seizure episode the following day requiring her to also be loaded with phenytoin. During her hospitalization, she became supratherapeutic with her Dilantin, and her Dilantin levels are currently therapeutic. Neurology was consulted for further management. Patient underwent MRI brain with and without contrast that was found to be unremarkable. Patient was counseled at length about the importance of medication compliance, the patient expressed understanding. Patient was evaluated by physical therapy who recommended acute rehab. Patient is medically cleared for discharge. Disposition: 01 HOME / SELF CARE / HOMELESS Final Discharge Diagnosis (Prints w/discharge instructions): Status epilepticus, seizure disorder, medication noncompliance, supratherapeutic Dilantin, asymptomatic COVID-19 infection, acute metabolic encephalopathy, mild protein caloric malnutrition, marijuana usage, ground-level fall Time spent for discharge: 45 min Core Measure Documentation - Palliative Care Palliative Care/ Comfort Measures: Not Applicable - Core Measures Any of the following diagnoses?: none Exam - Constitutional Vitals: Temp Pulse Resp BP Pulse Ox 98.0 F 76 18 123/79 99 11/04/21 10:05 11/04/21 10:05 11/04/21 10:05 11/04/21 10:05 11/04/21 10:05 General appearance: Present: no acute distress, well-nourished - EENT Eyes: Present: PERRL, EOM intact ENT: hearing intact, clear oral mucosa, dentition normal - Neck Neck: Present: supple, normal ROM - Respiratory Respiratory effort: normal Respiratory: bilateral: CTA - Cardiovascular Rhythm: regular Heart Sounds: Present: S1 & S2 - Extremities Extremities: no ischemia, pulses intact, pulses symmetrical, No edema, normal temperature, normal color Peripheral Pulses: within normal limits - Abdominal General gastrointestinal: Present: soft, non-tender, non-distended, normal bowel sounds Female genitourinary: Present: deferred - Rectal Rectal Exam: deferred - Integumentary Integumentary: Present: clear, warm, dry - Musculoskeletal Musculoskeletal: generalized weakness - Psychiatric Psychiatric: appropriate mood/affect, intact judgment & insight, memory intact, cooperative - Neurologic Neurologic: CNII-XII intact, moves all extremities - Allied Health Allied health notes reviewed: nursing Plan Activity: advance as tolerated Diet: regular Additional Instructions: The patient is a 46 YO Female with Seizure disorder not currently taking antiepileptic therapy presents to ED for evaluation. Patient is alert and has normal evaluations and provide history. Patient history taken from ED staff as well as the patient's family who present since of the bedside during exam and interview. The patient presented to the emergency department to last picker another family member when she was found by staff undergoing a generalized tonic-clonic seizure. Patient seen and evaluated in the emergency department. All lab and imaging studies reviewed. Patient was observed having multiple seizures with entire 5-minute timeframe which is consistent with status epilepticus complicated by encephalopathy. Patient admitted to medical floor due to increased risk of worsening symptoms and for medical stabilization. Patient loaded with Keppra in the emergency department. Despite being loaded with Keppra, the patient still experienced a seizure episode the following day requiring her to also be loaded with phenytoin. During her hospitalization, she became supratherapeutic with her Dilantin, and her Dilantin levels are currently therapeutic. Neurology was consulted for further management. Patient underwent MRI brain with and without contrast that was found to be unremarkable. Patient was counseled at length about the importance of medication compliance, the patient expressed understanding. Patient was evaluated by physical therapy who recommended acute rehab. Patient is medically cleared for discharge. Care Plan Goals: Patient is medically clear for discharge. Assessment: The patient is a 46 YO Female with Seizure disorder not currently taking antiepileptic therapy presents to ED for evaluation. Patient is alert and has normal evaluations and provide history. Patient history taken from ED staff as well as the patient's family who present since of the bedside during exam and interview. The patient presented to the emergency department to last picker another family member when she was found by staff undergoing a generalized tonic-clonic seizure. Patient seen and evaluated in the emergency department. All lab and imaging studies reviewed. Patient was observed having multiple seizures with entire 5-minute timeframe which is consistent with status epilepticus complicated by encephalopathy. Patient admitted to medical floor due to increased risk of worsening symptoms and for medical stabilization. Patient loaded with Keppra in the emergency department. Despite being loaded with Keppra, the patient still experienced a seizure episode the following day requiring her to also be loaded with phenytoin. During her hospitalization, she became supratherapeutic with her Dilantin, and her Dilantin levels are currently therapeutic. Neurology was consulted for further management. Patient underwent MRI brain with and without contrast that was found to be unremarkable. Patient was counseled at length about the importance of medication compliance, the patient expressed understanding. Patient was evaluated by physical therapy who recommended acute rehab. Patient is medically cleared for discharge. Follow up with: [facility] [Provider Group] - 3-5 Days ELIEL THRASHER MD [Staff Physician] - 3-5 Days (Dr. Thrasher is a neurologist. Please follow-up with him for further evaluation) JULY HUGO MD [Staff Physician] - 14 Days Prescriptions: levETIRAcetam [Keppra TAB] 1,000 mg PO BID 30 Days #120 tablet
[2021-11-04 16:08] VITALS: BP 127/93
== END 2021-11-04 17:12 | DRG 100 ==
LOC: ED 14:33 → 3A 20:05
PROVIDERS: ADMIT Internal Medicine; ATTEND Student in an Organized Health Care Education/Training Program
DX: G40.901 Epilepsy, unspecified, not intractable, with status epilepticus (principal); U07.1 COVID-19; E44.1 Mild protein-calorie malnutrition; Z68.1 Body mass index [BMI] 19.9 or less, adult; Z91.14 Patient's other noncompliance with medication regimen; F12.90 Cannabis use, unspecified, uncomplicated; H53.2 Diplopia; Z88.5 Allergy status to narcotic agent; Z82.49 Family history of ischemic heart disease and other diseases of the circulatory system; W18.39XA Other fall on same level, initial encounter; Y93.89 Activity, other specified; Y92.238 Other place in hospital as the place of occurrence of the external cause; Y99.8 Other external cause status
CPT/HCPCS: 36415; 70450; 70553; 71045; 80048; 80053; 80177; 80185; 80307; 82550; 82553; 82962; 83735; 84484; 85007; 85025; 85610; 93005; 96374; 96375; 99285; G0378; J7060; A9575; J1165; J1953; J2060; J2405; J7030; J7050; Q2009; U0003